=== PATIENT | male | born 1940 | race Caucasian/White ===

== ENCOUNTER → 2017-01-07 | Outpatient (CLI) | payer OTHER ==
[~2017-01-07] MED LIST: ASPEC81 PO; OMEP20TA PO; ZANTAC DAILY
[2017-01-07 09:58] LABS: CHOLESTEROL/HDL RATIO 3.6
== END | disposition home or self-care (01) ==
LOC: C.LAB1850 07:01
PROVIDERS: ATTEND Internal Medicine Cardiovascular Disease
DX: E78.5 Hyperlipidemia, unspecified (principal); R73.01 Impaired fasting glucose

== ENCOUNTER → 2017-07-21 | Outpatient (CLI) | payer OTHER ==
[2017-07-21 10:07] LABS: ALT/SGPT 12 U/L (12-78); AST/SGOT 9 U/L (15-37); BLOOD UREA NITROGEN 15 mg/dl (7-18); BUN/CREATININE RATIO 15.7 (10-20); CALCIUM 8.7 mg/dl (8.5-10.1); CARBON DIOXIDE 28 mmol/L (21-32); CHLORIDE 108 mmol/L (98-107); CHOLESTEROL 168 mg/dl (0-200); CREATININE 0.94 mg/dl (0.60-1.40); GLUCOSE 91 mg/dl (70-99); POTASSIUM 4.2 mmol/L (3.5-5.1); SODIUM 141 mmol/L (136-145); TRIGLYCERIDES 92 mg/dl (0-150); VERY LOW DENSITY LIPOPROT CALC 18 mg/dl
[2017-07-21 10:18] LABS: CHOLESTEROL/HDL RATIO 3.7; HDL CHOLESTEROL 45 mg/dl; LDL CHOLESTEROL CALCULATED 105 mg/dl
--- NOTE | 2017-07-27 12:43 | CODING QUERY MEDICAL NECESSITY ---
SUPPORTING DIAGNOSIS NEEDED A supporting diagnosis is required for the test/procedure performed on this patient in order for us to be reimbursed by the patient's insurance. Please provide a supporting diagnosis for the following test/procedure listed below next to the test name along with your signature. *If there is no additional diagnosis for this patient that would support the following test/procedure please document that below next to the test/procedure. Test(s)/Procedure(s) that require a supporting diagnosis: * PSA DIAGNOSIS: Provider Signature: Date: Thank you Reema Bhatt [employer] Once completed, please kindly fax back to [phone] For questions please call [phone]
== END | disposition home or self-care (01) ==
LOC: C.LAB1850 08:16
PROVIDERS: ATTEND Internal Medicine
DX: R73.01 Impaired fasting glucose (principal); E78.5 Hyperlipidemia, unspecified; Z00.00 Encounter for general adult medical examination without abnormal findings

== ENCOUNTER → 2018-01-12 | Outpatient (CLI) | payer OTHER ==
[2018-01-12 09:35] LABS: HEMATOCRIT 47.1 % (42-52); HEMOGLOBIN 16.7 g/dL (14.0-18.0); MEAN CELL VOLUME 94.8 fL (80-100); MEAN CORPUSCULAR HEMOGLOBIN 33.6 pg (25-34); MEAN CORPUSCULAR HGB CONC 35.5 g/dl (32-36); MEAN PLATELET VOLUME 10.1 fL (7.4-10.4); PLATELET COUNT 243 K/uL (130-400); RED CELL DISTRIBUTION WIDTH CV 13.2 % (11.5-14.5); RED CELL DISTRIBUTION WIDTH SD 45.2 fL (36.4-46.3); WHITE BLOOD COUNT 5.73 K/uL (4.8-10.8)
[2018-01-12 09:46] LABS: ALT/SGPT 20 U/L (12-78); AST/SGOT 11 U/L (15-37); BLOOD UREA NITROGEN 12 mg/dl (7-18); CARBON DIOXIDE 28 mmol/L (21-32); CHOLESTEROL 160 mg/dl (0-200); CREATININE 1.04 mg/dl (0.60-1.40); GLUCOSE 91 mg/dl (70-99); LDL CHOLESTEROL CALCULATED 92 mg/dl; POTASSIUM 4.1 mmol/L (3.5-5.1); SODIUM 140 mmol/L (136-145)
[2018-01-12 09:50] LABS: HEMOGLOBIN A1C 5.4 % (4.5-5.6)
== END | disposition home or self-care (01) ==
LOC: C.LAB1850 07:13
PROVIDERS: ATTEND Internal Medicine
DX: E78.5 Hyperlipidemia, unspecified (principal); R73.01 Impaired fasting glucose; K21.9 Gastro-esophageal reflux disease without esophagitis

== ENCOUNTER 2018-10-05 09:18 | Observation (INO) ==
--- NOTE | 2018-09-15 08:27 | Anesthesiology Consultation ---
Date of Service September 15, 2018 Assessment & Plan (1) Encounter for pre-operative examination: Chart Review Chart Review: Acceptable Risk for Surgery and Patient seen in Pre Admission Testing Teaching & Discussion Pre-Anesthesia Teaching/Discussion Notes: Instructed NPO after midnight before surgery,except medications with 15 cc of water. Medication instructions provided according to the PAT guidelines. History Surgery Operation Date: 10/04/18 11:10 Proposed Procedures p Open Inguinal Hernia Repair - Osmin Aldridge MD, FACS Height/Weight Height: 5 ft 9 in Weight: 86.1 kg Allergies Allergy/AdvReac Type Severity Reaction Status Date / Time No Known Allergies Allergy Verified 09/13/18 08:01 Medications Home Medications Medication Instructions Recorded Confirmed Last Taken aspirin [Aspir-81] 81 mg PO QAM 09/13/18 09/13/18 Unknown glucosamine sulfate [Glucosamine] 3,000 mg PO QAM 09/13/18 09/13/18 Unknown omeprazole 20 mg PO HS 09/13/18 09/15/18 Unknown psyllium husk [Metamucil] 0.4 g PO QAM 09/13/18 09/13/18 Unknown ranitidine HCl [Zantac] 150 mg PO QAM 09/13/18 09/13/18 Unknown Past Medical History Medical History GERD (gastroesophageal reflux disease) CONTROLLED Inguinal hernia Past Surgical History Surgical History History of cataract extraction with lens replacement B/L History of colonoscopy History of esophagogastroduodenoscopy (EGD) History of hemorrhoidectomy History of herniorrhaphy LEFT INGUINAL History of vasectomy Past Anesthesia History No Hx of Anesthesia Complications and No Family Hx of Anesthesia Complications History of PONV No Motion Sickness Screening History of Motion Sickness: No Social History Smoking Status: Never smoker Do You Dip or Chew Tobacco: No Hx Alcohol Use: Yes Alcohol type: other alcohol intake frequency: holidays/special occasions only Hx Substance Use: No substance use type: does not use Exercise / Class Metabolic Activity II 4-5 Yardwork/Stairs/Walk up hill Review of Systems Patient denies chest pain, shortness of breath, dyspnea on exertion, cough, wheezing, palpitations. Physical Exam Vital Signs VITALS BP 153/84 P 73 TEMP 97.7 SP02 96%RA RESP 18 Patient advised to followup with PCP regarding elevated BP. Full neck and c-spine range of motion. Full TMJ range of motion. TMD 3 finger breaths Mallampati Score 2 Dentition: upper/lower partials Lungs: clear throughout to auscultation Cardiac: regular rate and rhythm, no murmurs noted Spine: normal Carotid arteries: negative bruit Extremities: no edema Testing Electrocardiogram Date: 09/15/18 Findings: + NSR @ (70) Laboratory Results 09/15/18 08:35 09/15/18 08:35
--- NOTE | 2018-09-15 08:31 | PAT Medication Instructions ---
Medication Instructions Date of Service September 15, 2018 Home Medications aspirin [Aspir-81] 81 mg PO QAM glucosamine sulfate [Glucosamine] 3,000 mg PO QAM omeprazole 20 mg PO QAM psyllium husk [Metamucil] 0.4 g PO QAM ranitidine HCl [Zantac] 150 mg PO QAM ASK your prescriber and surgeon aspirin [Aspir-81] 81 mg PO QAM STOP taking 2 weeks before surgery (or as soon as possible if surgery is within 2 weeks) glucosamine sulfate [Glucosamine] 3,000 mg PO QAM DO NOT take the morning of surgery psyllium husk [Metamucil] 0.4 g PO QAM ranitidine HCl [Zantac] 150 mg PO QAM Take evening before surgery omeprazole 20 mg PO QHS Other Notes If you have any questions please call us at [phone] or [phone] or [phone] or [phone]
[2018-09-15 10:16] LABS: Basophils # (auto) 0.12 K/uL (0-0.2); Basophils % (auto) 1.7 %; Eosinophils # (auto) 0.23 K/uL (0-0.5); Eosinophils % (auto) 3.3 %; Hematocrit (blood only) 44.6 % (42-52); Hemoglobin 15.8 g/dL (14.0-18.0); Immature Granulocytes # (auto) 0.02 K/uL (0.00-0.02); Immature Granulocytes % (auto) 0.3 %; Lymphocytes # (auto) 1.97 K/uL (1.2-3.4); Lymphocytes % (auto) 28.4 %; Mean Corpuscular Hgb Conc 35.4 g/dL (32-36); Mean Corpuscular Volume 94.9 fL (80-100); Mean Platelet Volume 10.1 fL (7.4-10.4); Monocytes % (auto) 8.7 %; Neutrophils # (auto) 3.99 K/uL (1.4-6.5); Neutrophils % (auto) 57.6 %; Platelet Count 230 K/uL (130-400); RDW Coefficient of Variation 13.1 % (11.5-14.5); RDW Standard Deviation 45.7 fL (36.4-46.3); White Blood Count 6.93 K/uL (4.8-10.8)
[2018-09-15 10:22] LABS: Creatinine Clr Calc Pharmacy 60.4 ml/min; Est GFR (African American) 76.4; Potassium 4.9 mmol/L (3.5-5.1)
[2018-10-05] MEDS: LR 15ML/HR IV SCH ×2 (10:00→19:37)
--- NOTE | 2018-10-05 10:35 | History & Physical Bridge Note ---
Date of Service October 05, 2018 History & Physical Bridge Note I have examined the patient, reviewed the History & Physical and in the interval since the performance of the History & Physical I have noted the following changes of clinical significance: no changes noted
[2018-10-05] MEDS ORDERED: HYDROmorphone INJ 1 MG/ML SYRINGE IV PRN (11:20)
[2018-10-05] MEDS ORDERED: ePHEDrine sulfate 50 MG/ML AMP IV PRN (11:20)
[2018-10-05] MEDS ORDERED: ATROPINE SULFATE 0.1 MG/ML 10ML SYR IV PRN (11:20)
[2018-10-05] MEDS ORDERED: MIDAZOLAM HCL 1 MG/ML 2ML VIAL ONE (11:21)
[2018-10-05] MEDS ORDERED: fentaNYL citrate 100 MCG/2 ML VIAL ONE (11:21)
[2018-10-05] MEDS ORDERED: LIDOCAINE HCL 1% 20 ML VIAL ONE (11:56)
[2018-10-05] MEDS ORDERED: CEFAZOLIN 250 MG/ML 1 GM VIAL ONE (11:56)
[2018-10-05] MEDS ORDERED: BUPIVACAINE 0.5 % 5 MG/1 ML MPF 30ML VIAL ONE (11:56)
[2018-10-05] MEDS: CEFAZOLIN 2000MG 2,000 MG/15 ML SYR IV SCH ×3 (12:10→20:06)
[2018-10-05] MEDS ORDERED: GLYCOPYRROLATE 0.2 MG/ML VIAL ONE (12:45)
[2018-10-05] MEDS ORDERED: ONDANSETRON INJ 2 MG/ML 2 ML VIAL ONE (12:45)
[2018-10-05] MEDS ORDERED: ePHEDrine sulfate 50 MG/ML SYR ONE (12:45)
[2018-10-05] MEDS ORDERED: ROCURONIUM BROMIDE 10 MG/ML 5 ML VIAL ONE (12:45)
[2018-10-05] MEDS ORDERED: DEXAMETHASONE SOD INJ 4 MG/ML VIAL ONE (12:45)
[2018-10-05] MEDS ORDERED: LARYING-O-JET KIT (LTA) ONE (12:45)
[2018-10-05] MEDS ORDERED: LIDOCAINE HCL 2% 2 ML VIAL/AMP(20MG/ML) INFIL ONE (12:45)
[2018-10-05] MEDS ORDERED: NEOSTIGMINE METHYLSULFATE 5 MG/5 ML SYR ONE (12:45)
[2018-10-05] MEDS ORDERED: PROPOFOL IV EMULSION 10 MG/ML 20 ML VIAL IV ONE (12:45)
--- NOTE | 2018-10-05 13:13 | Operative Report ---
Post Operative Report Pre & Post Diagnosis Operation Date: 10/05/18 11:15 Pre-Op Diagnosis: Right Inguinal Hernia Post-Op Diagnosis: Right Inguinal Hernia same Procedure Operation Date: 10/05/18 11:15 Actual Procedures p Right Open Inguinal Hernia Repair with Mesh(Right) - Osmin Aldridge MD, FACS same Surgeon Osmin Aldridge MD, FACS [employer] Vania Ortega Estimated Blood Loss 10 Findings Consistent with Post-Op Diagnosis Specimens none I attest to the content of the Intraoperative Record and any orders documented therein. Any exceptions are noted below.
[2018-10-05] MEDS ORDERED: ACETAMINOPHEN 1,000 MG/100 ML VIAL IV ONE (13:14)
--- NOTE | 2018-10-05 14:02 | Anesthesiology Progress Note ---
Date of Service October 05, 2018 Anesthesia Post Procedure Vital Signs Vital Signs: Temp Pulse Pulse Resp BP BP Pulse Ox 10/05/18 13:51 36.6 C 63 22 136/71 97 10/05/18 13:44 64 19 116/65 96 10/05/18 13:40 63 19 144/70 H 97 10/05/18 13:36 63 14 129/87 97 10/05/18 13:35 60 12 96 10/05/18 13:30 65 8 L 139/78 96 10/05/18 13:27 64 7 L 152/81 H 92 10/05/18 13:26 36.3 C L 63 14 152/81 H 97 Notes Mental Status: alert / awake / arousable Patient Amnestic to Procedure: Yes Nausea / Vomiting: adequately controlled Pain: adequately controlled Airway Patency, RR, SpO2: stable & adequate BP & HR: stable & adequate Hydration State: stable & adequate Anesthetic Complications: no major complications apparent and Pt Satisfied with anesthetic care
[2018-10-05] MEDS ORDERED: SODIUM CHLORIDE 0.9% 1000ML 1,000 ML IV SCH (14:46)
[2018-10-05] MEDS ORDERED: ONDANSETRON INJ 2 MG/ML 2 ML VIAL IV PRN (14:46)
[2018-10-05] MEDS ORDERED: PROMETHAZINE HCL 12.5 MG in SODIUM CHLORIDE 0.9% 50 ML IV PRN (14:46)
--- NOTE | 2018-10-05 14:55 | Operative Report ---
DATE OF OPERATION: 10/05/2018 NAME OF OPERATION: Open right inguinal hernia repair. PREOPERATIVE DIAGNOSIS: Right inguinal hernia. POSTOPERATIVE DIAGNOSIS: Right inguinal hernia. STAFF SURGEON: Osmin Aldridge MD ANESTHESIA: General. TEACHERS ASSISTANT: Alia Ortega PA-C DESCRIPTION OF PROCEDURE: The patient was brought in the operating room and placed on the operating table in supine position. His lower abdomen was prepped and draped in usual fashion. Skin and subcutaneous tissue on the right side were anesthetized. Incision made parallel to the inguinal ligament, carrying dissection down, identifying the external oblique fibers. These were incised along their length to the external ring, mobilizing the cord structures. The patient had a direct hernia sac which was mobilized away from the cord structures and then reduced. It was partially closed, reapproximating the inguinal ligament to the transversalis fascia using 0 silk suture, then a mesh plug placed into the defect, secured to surrounding tissue using 2-0 Ethibond suture, then a mesh patch placed over the plug around the cord structures, secured using 2-0 Ethibond suture. This site was irrigated with antibiotic solution. External oblique fibers closed over the mesh around the cord structures using 2-0 Ethibond suture. Subcutaneous tissue reapproximated using 2-0 plain suture and then the skin reapproximated using 4-0 nylon and Steri-Strips. My document control assistant helped with prepping, draping, repair of the hernia and closure of the wound. A dressing applied and the patient transferred to recovery room in stable condition. I attest to the content of the Intraoperative Record and any orders documented therein. Any exception s are noted below.
[2018-10-05] MEDS ORDERED: OXYCODONE/ACETAMINOPHEN 5mg/325mg TAB PO PRN (20:30)
[2018-10-05] MEDS ORDERED: ACETAMINOPHEN 325 MG TAB PO PRN (20:30)
[2018-10-05] MEDS ORDERED: PANTOprazole 40 MG TAB PO SCH (21:00)
[2018-10-06] MEDS: CEFAZOLIN 2000MG 2,000 MG/15 ML SYR IV SCH (03:19)
--- NOTE | 2018-10-06 08:08 | Discharge Summary ---
DATE OF DISCHARGE: 10/06/18 PRINCIPAL DIAGNOSIS: Right inguinal hernia. PROCEDURES: The patient underwent open right inguinal hernia repair. HISTORY OF PRESENT ILLNESS: The patient is an 78-year-old male with enlarging right inguinal hernia for definitive surgery. HOSPITAL COURSE: The patient was brought into the hospital on 10/05/2018 where he underwent open right inguinal hernia repair. He has done well overnight and is felt stable for discharge home today to be followed in the surgical clinic within 1-2 weeks.
[2018-10-06] MEDS ORDERED: DOCUSATE SODIUM/SENNA 50/8.6MG TAB PO SCH (09:00)
== END 2018-10-06 09:30 | disposition home or self-care (01) ==
LOC: 3W 09:18 → ASU 09:18

== ENCOUNTER 2019-04-29 15:28 | Inpatient (IN) ==
[2019-04-29] MEDS ORDERED: SODIUM CHLORIDE 0.9% 1000ML 1,000 ML IV ONE (15:49)
--- NOTE | 2019-04-29 15:56 | Emergency Department Note ---
History of Present Illness General Chief complaint: Abdominal Pain Stated complaint: STOMACH PAINS Time Seen by Provider: 04/29/19 15:34 History of Present Illness Maximum Pain Intensity: 5 79-year-old male who presents the emergency department with complaint of persistent central and right upper quadrant abdominal pain. The patient reports that he was here on Thursday with similar symptoms, and diagnosed with gallstones hiatal hernia. The patient reports that he has had difficulty scheduling an appointment with a general surgeon, but was able to schedule an appointment for next Thursday with Dr. Madrigal. The patient reports that he has had poor appetite all week. He has been eating cereal and poached eggs. The patient reports that the pain is constant in nature without any radiation to the lower abdomen, back, chest or shoulder. He denies any chest pain or shortness of br eath, and denies any prior cardiac history. The patient has not had any recent diarrhea, constipation, melena or mucus stools. The patient reports that he did have a fever this morning between 101 101 F. He currently rates his discomfort a 5 out of 10. Home Medications Home Medications Medication Instructions Recorded Confirmed Type aspirin [Aspir-81] 81 mg PO QAM 09/13/18 04/29/19 History glucosamine sulfate [Glucosamine] 1,000 mg PO QAM 09/13/18 04/29/19 History omeprazole 20 mg PO HS 09/13/18 04/29/19 History calcium polycarbophil [Fiber-Tabs] 1,250 mg PO QAM 04/25/19 04/29/19 History multivitamin 1 tab PO QAM 04/29/19 04/29/19 History naproxen sodium [Aleve] 220 mg PO Q12H PRN 04/29/19 04/29/19 History Allergies Allergy/AdvReac Type Severity Reaction Status Date / Time No Known Allergies Allergy Verified 04/29/19 16:15 Past Med/Surg History Medical History Systolic ejection murmur Encounter for pre-operative examination Left foot infection (Acute) Gallstones GERD (gastroesophageal reflux disease) CONTROLLED Inguinal hernia Surgical History History of cataract extraction with lens replacement B/L History of colonoscopy History of esophagogastroduodenoscopy (EGD) History of hemorrhoidectomy History of herniorrhaphy LEFT INGUINAL History of vasectomy Family History Other No significant family history Social History Preferred Language: Moldovan Communication Ability: Effective Instructional Technology Facilitator Required: No Beliefs That Will Affect Care: None Current Living Situation: Spouse Other Information That Helps Us Care for You: No Feels Safe at Home: Yes Safety Concerns: Feels Safe At This Time Smoking Status: Never smoker Do You Dip or Chew Tobacco: No ; Second Hand Exposure: No ; Tobacco Cessation Education Requested by Patient: No Hx Alcohol Use: No Hx Substance Use: No Review of Systems 10 system review was performed and was negative except for pertinent positives and negatives as indicated in history of present illness Physical Exam Vital Signs Vital Signs - 24 hr 04/29/19 15:31 04/29/19 17:38 04/29/19 17:42 Temperature 37.4 C Temperature Source Oral Sepsis Recent Fever Within 48 Hours Yes Sepsis New/Unexplained Change in Mental Status No Sepsis Action Taken by Nursing No Action Required Pulse Rate 111 H 76 76 Respiratory Rate 18 25 H 26 H Blood Pressure 153/92 H 160/95 H Blood Pressure Mean 112 116 Pulse Oximetry 94 Oxygen Delivery Method Room Air 04/29/19 18:00 04/29/19 18:02 Temperature Temperature Source Sepsis Recent Fever Within 48 Hours Sepsis New/Unexplained Change in Mental Status Sepsis Action Taken by Nursing Pulse Rate 79 Respiratory Rate 27 H Blood Pressure Blood Pressure Mean Pulse Oximetry 97 Oxygen Delivery Method Room Air CONSTITUTIONAL: Healthy and well nourished. Alert and oriented X 3. Patient appears in mild discomfort. HEENT: Normocephalic, atraumatic. Pupils equal, round and reactive. No scleral icterus or conjunctival injection/pallor. NECK: Full active range of motion without discomfort. No JVD or carotid bruits appreciated. LYMPHATICS: No cervical chain adenopathy. RESPIRATORY: Clear to auscultation bilaterally with no wheezing, crackles, rhonchi or stridor. CARDIOVASCULAR: Regular rate and rhythm with no murmurs, rubs or gallops. GASTROINTESTINAL: Bowel sounds present in all quadrants. She has generalized central and right upper quadrant tenderness to palpation. Negative Hicks sign. Negative CVA tenderness. No obvious hepatosplenomegaly. No rigidity, guarding or rebound. Negative McBurney's point tenderness. No focal left lower quadrant tenderness to palpation. No fluid wave or ballottement. MUSCULOSKELETAL: Full range of motion of all joints without discomfort. INTEGUMENTARY: No rash or other significant dermatologic conditions noted. HEMATOLOGIC: No ecchymosis or petechiae. PSYCHIATRIC: Positive affect. NEUROLOGIC: No focal neurologic deficits noted. Course Patient history and physical exam were performed. Nurse's notes were reviewed. Vital signs were reviewed, showing an oral temperature of 37.4 C with a pulse rate of 111. Blood pressure is also elevated at 153/92. O2 saturation is 94% on room air. I also reviewed documentations from the patient's last ED visit. He did have CT of the abdomen and pelvis with IV contrast performed that showed no acute intra-abdominal findings. Diverticulosis was noted without evidence for diverticulitis. A hiatal hernia was also noted. Gallstones were noted on ultrasound. Chest x-ray was normal. The patient's lab work on Thursday was also normal. For today's visit, IV access was established, and labs were drawn. The patient was hydrated with a liter normal saline. He refused any analgesics or antiemetics. Review of labs shows a moderate leukocytosis with left shift and bandemia. Patient is also mildly hyponatremic at 135. Total bilirubin is also elevated at 1.7 with normal LFTs and lipase. CRP is significantly elevated and ECG and troponin were normal. Urinalysis was not consistent with infection. An abdomen obstruction series with a PA chest view did not show any free air, obstructive pattern or pulmonary consolidations. Right upper quadrant ultrasound shows gallbladder wall thickening, gallstones and sludge without evidence for pericholecystic fluid. The case was further discussed with Dr. Edwards, ED attending physician, who also evaluated the patient and agrees with surgical consultation. The case was then further discussed with Dr. Madrigal, general surgeon on-call who came to the emergency department, evaluated the patient and recommended hospitalist admission for presurgical clearance. Pending additional lab work, laparoscopic cholecystectomy and possible cholangiogram was planned for tomorrow. I did order Zosyn 4.5 g IV infusion. The patient continued to deny any significant pain or nausea prior to transfer of care to Dr. Brower, [facility] physician's Group hospitalist. Administered Medications Diphenhydramine HCl (Benadryl Capsule) 25 mg PO HSZ PRN PRN Reason: Anxiety/Insomnia Stop: 05/29/19 21:07 Last Admin: 04/29/19 22:11 Dose: 25 mg Documented by: [id number] Ondansetron HCl (Zofran) 4 mg IV Q6H PRN PRN Reason: Nausea Stop: 05/29/19 21:07 Last Admin: 04/29/19 22:04 Dose: 4 mg Documented by: [id number] Discontinued Medications Sodium Chloride (Nss 1000ml) 1,000 mls @ 999 mls/hr IV .Q1H1M ONE Stop: 04/29/19 16:49 Last Infusion: 04/29/19 17:21 Dose: 0 mls/hr Documented by: [id number] Admin: 04/29/19 16:02 Dose: 999 mls/hr Documented by: [id number] Piperacillin Sod/Tazobactam Sod (Zosyn) 4.5 gm in 120 mls @ 240 mls/hr IV NOW ONE Stop: 04/29/19 18:54 Last Infusion: 04/29/19 19:40 Dose: 0 mls/hr Documented by: [id number] Admin: 04/29/19 19:06 Dose: 240 mls/hr Documented by: [id number] Acetaminophen (Ofirmev) 1,000 mg in 100 mls @ 400 mls/hr IV NOW STA Stop: 04/29/19 22:11 Last Infusion: 04/29/19 22:43 Dose: 0 mls/hr Documented by: [id number] Admin: 04/29/19 22:05 Dose: 400 mls/hr Documented by: [id number] Medical Decision Making Medical Records Attestation: I reviewed the patient's medical records. Home Medications Current Medication List: was personally reviewed by me Laboratory Data Attestation: I reviewed the patient's lab results. Result diagrams: 04/29/19 15:59 04/29/19 15:59 Lab Results 04/29/19 04/29/19 04/29/19 Range/Units 15:59 15:59 15:59 WBC 13.81 H (4.8-10.8) K/uL RBC 4.38 L (4.7-6.1) M/uL Hgb 14.9 (14.0-18.0) g/dL Hct 40.6 L (42-52) % MCV 92.7 (80-100) fL MCH 34.0 (25-34) pg MCHC 36.7 H (32-36) g/dL RDW Std Deviation 42.2 (36.4-46.3) fL RDW Coeff of Salazar 12.4 (11.5-14.5) % Plt Count 221 (130-400) K/uL MPV 9.9 (7.4-10.4) fL Immature Gran % (Auto) 0.3 % Neut % (Auto) 78.9 % Lymph % (Auto) 9.8 % [place] % (Auto) 10.3 % Eos % (Auto) 0.5 % Baso % (Auto) 0.2 % Immature Gran # (Auto) 0.04 H (0.00-0.02) K/uL Neut # (Auto) 10.89 H (1.4-6.5) K/uL Lymph # (Auto) 1.36 (1.2-3.4) K/uL [place] # (Auto) 1.42 H (0.11-0.59) K/uL Eos # (Auto) 0.07 (0-0.5) K/uL Baso # (Auto) 0.03 (0-0.2) K/uL PT 12.9 H (9.0-12.0) Seconds INR 1.3 H (0.9-1.1) APTT 32.7 H (21.0-31.0) Seconds PTT Ratio 1.2 Sodium 135 L (136-145) mmol/L Potassium 3.5 (3.5-5.1) mmol/L Chloride 104 (98-107) mmol/L Carbon Dioxide 24 (21-32) mmol/L Anion Gap 7.0 (3-11) BUN 14 (7-18) mg/dl Creatinine 0.84 (0.6-1.4) mg/dl Est Cr Clr Drug Dosing 69.0 ml/min Est GFR ( Amer) 95.2 Est GFR (Non-Af Amer) 82.1 BUN/Creatinine Ratio 16.7 (10-20) Glucose 101 H (70-99) mg/dl Calcium 8.3 L (8.5-10.1) mg/dl Total Bilirubin 1.7 H (0.2-1) mg/dl AST 23 (15-37) U/L ALT 34 (12-78) U/L Alkaline Phosphatase 81 (45-117) U/L Troponin I < 0.015 (0-0.045) ng/ml C-Reactive Protein 11.60 H (0-0.29) mg/dl Total Protein 7.2 (6.4-8.2) gm/dl Albumin 3.1 L (3.4-5.0) gm/dl Globulin 4.1 H (2.5-4.0) gm/dl Albumin/Globulin Ratio 0.8 L (0.9-2) Lipase 63 L (73-393) U/L Urine Color Urine Appearance (Clear) Urine pH (4.5-7.5) Ur Specific [place] (1.000-1.030) Urine Protein (Negative) Urine Glucose (UA) (Negative) Urine Ketones (Negative) Urine Blood (Negative) Urine Nitrite (Negative) Urine Bilirubin (Negative) Urine Urobilinogen (Negative) Ur Leukocyte Esterase (Negative) 04/29/19 Range/Units 17:30 WBC (4.8-10.8) K/uL RBC (4.7-6.1) M/uL Hgb (14.0-18.0) g/dL Hct (42-52) % MCV (80-100) fL MCH (25-34) pg MCHC (32-36) g/dL RDW Std Deviation (36.4-46.3) fL RDW Coeff of Salazar (11.5-14.5) % Plt Count (130-400) K/uL MPV (7.4-10.4) fL Immature Gran % (Auto) % Neut % (Auto) % Lymph % (Auto) % [place] % (Auto) % Eos % (Auto) % Baso % (Auto) % Immature Gran # (Auto) (0.00-0.02) K/uL Neut # (Auto) (1.4-6.5) K/uL Lymph # (Auto) (1.2-3.4) K/uL [place] # (Auto) (0.11-0.59) K/uL Eos # (Auto) (0-0.5) K/uL Baso # (Auto) (0-0.2) K/uL PT (9.0-12.0) Seconds INR (0.9-1.1) APTT (21.0-31.0) Seconds PTT Ratio Sodium (136-145) mmol/L Potassium (3.5-5.1) mmol/L Chloride (98-107) mmol/L Carbon Dioxide (21-32) mmol/L Anion Gap (3-11) BUN (7-18) mg/dl Creatinine (0.6-1.4) mg/dl Est Cr Clr Drug Dosing ml/min Est GFR ( Amer) Est GFR (Non-Af Amer) BUN/Creatinine Ratio (10-20) Glucose (70-99) mg/dl Calcium (8.5-10.1) mg/dl Total Bilirubin (0.2-1) mg/dl AST (15-37) U/L ALT (12-78) U/L Alkaline Phosphatase (45-117) U/L Troponin I (0-0.045) ng/ml C-Reactive Protein (0-0.29) mg/dl Total Protein (6.4-8.2) gm/dl Albumin (3.4-5.0) gm/dl Globulin (2.5-4.0) gm/dl Albumin/Globulin Ratio (0.9-2) Lipase (73-393) U/L Urine Color Dark Yellow Urine Appearance Clear (Clear) Urine pH 7.5 (4.5-7.5) Ur Specific [place] 1.014 (1.000-1.030) Urine Protein Negative (Negative) Urine Glucose (UA) Negative (Negative) Urine Ketones 1+ H (Negative) Urine Blood Negative (Negative) Urine Nitrite Negative (Negative) Urine Bilirubin Negative (Negative) Urine Urobilinogen Positive H (Negative) Ur Leukocyte Esterase Negative (Negative) Imaging Data Attestation: I personally reviewed and interpreted this imaging study as follows: My Impression: My interpretation of an abdomen obstruction series with a PA chest view does not show any obstructive pattern, free air or lung consolidations. Gallbladder ultrasound shows gallbladder sludge, stones and gallbladder wall thickening without pericholecystic fluid. Radiologist reports were reviewed. Radiologist's Impression: XR abdomen 2V w PA chest HISTORY: 79 years-old Male Abd pain, hiata; hernia acute generalized abdominal pain with hiatal hernia. COMPARISON: Chest radiograph and CT abdomen and pelvis 04/25/2019 TECHNIQUE: PA view the chest with erect and supine views of the abdomen FINDINGS: Cardiac silhouette is enlarged. Mild prominence of the left hilum is unchanged. No pneumothorax, pleural effusion or overt pulmonary edema. Areas of chronic interstitial coarsening noted about the lung bases. Degenerative changes of the shoulders and spine. Moderate sized hiatal hernia. Nonobstructive bowel gas pattern. No pneumatosis or pneumoperitoneum. Pelvic basin calcifications are suggestive of probable phleboliths. No definite urolith. Degenerative changes of the spine, pelvis and hips. IMPRESSION: 1. No acute process of the chest. 2. Moderate hiatal hernia. 3. Nonobstructive bowel gas pattern. US gallbladder HISTORY: 79 years-old Male Abd pain - gallstones acute right upper quadrant abdominal pain COMPARISON: Abdominal ultrasound and CT abdomen and pelvis 04/25/2019 TECHNIQUE: Multiple real time sonographic images of the abdominal right upper quadrant were obtained assessing grayscale appearance and color flow FINDINGS: Pancreas is mostly obscured by bowel gas. Heterogeneous mildly echogenic appearance of the liver redemonstrated. No focal hepatic mass lesion, ascites or evidence of cirrhosis. Cholelithiasis and gallbladder sludge is noted with mild gallbladder distention. Mildly edematous and thickened gallbladder wall measures up to 6 mm. No definite pericholecystic fluid. Sonographic Hicks sign reported as negative. Common bile duct is normal, 5 mm. Imaged right kidney is unremarkable without hydronephrosis. IMPRESSION: 1. Interval development of mild gallbladder distention and gallbladder wall thickening with associated cholelithiasis and gallbladder sludge. There is however no pericholecystic fluid and the sonographic Hicks sign was reported as negative. Findings are equivocal for acute cholecystitis. Correlate with laboratory analysis and clinical symptoms. Follow-up nuclear medicine hepatobiliary scan may also be considered. 2. No biliary ductal dilation. ECG Data Attestation: I personally reviewed and interpreted this ECG as follows: Indication: abdominal pain Rhythm: normal sinus Findings: + T-wave inversion (Lead III) Comparison ECG Date: from (04/25/2019) Change: the following changes noted (New T wave inversion in lead III) Blood Pressure Blood Pressure Findings: Elevated blood pressure MDM Narrative Patient presents to the emergency department with progressively worsening symptoms concerning for acute cholecystitis. Patient is near febrile and has a moderate leukocytosis with left shift and bandemia. Ultrasound findings does show evidence for gallbladder sludge, stones and gallbladder wall thickening, however no pericholecystic fluid is noted. Additional laboratory studies are not suggestive of acute pancreatitis. LFTs are normal. The patient does not have any additional abdominal exam findings to suggest diverticulitis, appendicitis or pyelonephritis. I also do not suspect acute cardiopulmonary referred pain. ECG and troponin are normal. Impression & Plan Acute cholecystitis Discharge Plan Visit Data *Final* Discharge Date/Time: 04/29/19 20:57 Chief Complaint: Abdominal Pain Stated Complaint: STOMACH PAINS ED Provider: Jose Edwards ED Midlevel Provider: Fidel Johnson Discharge Problem: Acute cholecystitis Patient Disposition: Admitted As Inpatient Discharge Instructions Interventions: ED Discharge Assessment Last Done: 04/29/19 20:57
[2019-04-29 16:14] LABS: Basophils # (auto) 0.03 K/uL (0-0.2); Basophils % (auto) 0.2 %; Eosinophils # (auto) 0.07 K/uL (0-0.5); Eosinophils % (auto) 0.5 %; Hematocrit (blood only) 40.6 % (42-52); Hemoglobin 14.9 g/dL (14.0-18.0); Immature Granulocytes # (auto) 0.04 K/uL (0.00-0.02); Immature Granulocytes % (auto) 0.3 %; Lymphocytes # (auto) 1.36 K/uL (1.2-3.4); Lymphocytes % (auto) 9.8 %; Mean Corpuscular Hgb Conc 36.7 g/dL (32-36); Mean Corpuscular Volume 92.7 fL (80-100); Mean Platelet Volume 9.9 fL (7.4-10.4); Monocytes # (auto) 1.42 K/uL (0.11-0.59); Monocytes % (auto) 10.3 %; Neutrophils # (auto) 10.89 K/uL (1.4-6.5); Neutrophils % (auto) 78.9 %; Platelet Count 221 K/uL (130-400); RDW Coefficient of Variation 12.4 % (11.5-14.5); RDW Standard Deviation 42.2 fL (36.4-46.3); Red Blood Count 4.38 M/uL (4.7-6.1); White Blood Count 13.81 K/uL (4.8-10.8)
[2019-04-29 16:24] LABS: INR 1.3 (0.9-1.1); Partial Thromboplastin Ratio 1.2; Partial Thromboplastin Time 32.7 Seconds (21.0-31.0); Prothrombin Time 12.9 Seconds (9.0-12.0)
[2019-04-29 16:50] LABS: Alanine Aminotransferase 34 U/L (12-78); Albumin Level 3.1 gm/dl (3.4-5.0); Aspartate Aminotransferase 23 U/L (15-37); BUN Creatinine Ratio 16.7 (10-20); Blood Urea Nitrogen 14 mg/dl (7-18); Calcium 8.3 mg/dl (8.5-10.1); Carbon Dioxide 24 mmol/L (21-32); Chloride 104 mmol/L (98-107); Est GFR (African American) 95.2; Est GFR (Non-African American) 82.1; Glucose 101 mg/dl (70-99); Potassium 3.5 mmol/L (3.5-5.1); Sodium 135 mmol/L (136-145)
[2019-04-29 16:55] LABS: Albumin Globulin Ratio 0.8 (0.9-2); Alkaline Phosphatase 81 U/L (45-117); Bilirubin,Total 1.7 mg/dl (0.2-1); Globulin 4.1 gm/dl (2.5-4.0); Total Protein 7.2 gm/dl (6.4-8.2); Troponin I < 0.015 ng/ml (0-0.045)
--- NOTE | 2019-04-29 17:14 | XRay Report ---
XR abdomen 2V w PA chest HISTORY: 79 years-old Male Abd pain, hiata; hernia acute generalized abdominal pain with hiatal rea ia. COMPARISON: Chest radiograph and CT abdomen and pelvis 04/25/2019 TECHNIQUE: PA view the chest with erect and supine views of the abdomen FINDINGS: Cardiac silhouette is enlarged. Mild prominence of the left hilum is unchanged. No pneumothorax, pleu ral effusion or overt pulmonary edema. Areas of chronic interstitial coarsening noted about the lung bases. Degenerative changes of the shoulders and spine. Moderate sized hiatal hernia. Nonobstructive bowel gas pattern. No pneumatosis or pneumoperitoneum. Pelvic basin calcifications ar e suggestive of probable phleboliths. No definite urolith. Degenerative changes of the spine, pelvis and hips. IMPRESSION: 1. No acute process of the chest. 2. Moderate hiatal hernia. 3. Nonobstructive bowel gas pattern. The above report was generated using voice recognition software. It may contain grammatical, syntax o r spelling errors. Electronically signed by: Mark Villafuerte M.D. 04/29/2019 5:13 PM
--- NOTE | 2019-04-29 17:39 | Ultrasound Report ---
US gallbladder HISTORY: 79 years-old Male Abd pain - gallstones acute right upper quadrant abdominal pain COMPARISON: Abdominal ultrasound and CT abdomen and pelvis 04/25/2019 TECHNIQUE: Multiple real time sonographic images of the abdominal right upper quadrant were obtained assessing grayscale appearance and color flow FINDINGS: Pancreas is mostly obscured by bowel gas. Heterogeneous mildly echogenic appearance of the liver rede monstrated. No focal hepatic mass lesion, ascites or evidence of cirrhosis. Cholelithiasis and gallbl adder sludge is noted with mild gallbladder distention. Mildly edematous and thickened gallbladder wa ll measures up to 6 mm. No definite pericholecystic fluid. Sonographic Hicks sign reported as negati ve. Common bile duct is normal, 5 mm. Imaged right kidney is unremarkable without hydronephrosis. IMPRESSION: 1. Interval development of mild gallbladder distention and gallbladder wall thickening with associate d cholelithiasis and gallbladder sludge. There is however no pericholecystic fluid and the sonographi c Hicks sign was reported as negative. Findings are equivocal for acute cholecystitis. Correlate wit h laboratory analysis and clinical symptoms. Follow-up nuclear medicine hepatobiliary scan may also b e considered. 2. No biliary ductal dilation. The above report was generated using voice recognition software. It may contain grammatical, syntax o r spelling errors. Electronically signed by: Mark Villafuerte M.D. 04/29/2019 5:38 PM
--- NOTE | 2019-04-29 18:06 | Emergency Department Note ---
ED Visit Note Patient was seen by our PA/SNAP ATTACHER. I was involved in the patient's care and did evaluate the patient myself. I was involved in the care throughout the ER stay. The patient presents with a history of gallstones. Work-up here suggests an early acute cholecystitis. He does have an elevated white blood cell count. Hospitalization is warranted. Surgery and medicine have been consulted. .
[2019-04-29 18:14] LABS: Appearance Urine Clear (Clear); Bilirubin Urine Negative (Negative); Blood Urine Negative (Negative); Color Urine Dark Yellow; Glucose Urine UA Negative (Negative); Ketones Urine 1+ (Negative); Leukocyte Esterase Urine Negative (Negative); Nitrite Urine Negative (Negative); Protein Urine Negative (Negative); Specific Gravity Urine 1.014 (1.000-1.030); Urobilinogen Urine Positive (Negative); pH Urine 7.5 (4.5-7.5)
[2019-04-29] MEDS ORDERED: PIPERACILLIN/TAZOBACTAM 4.5 GM/120 ML BAG IV ONE (18:25)
[2019-04-29] MEDS ORDERED: PIPERACILL/TAZOBAC CONSULT ACTIVE PRN (18:25)
--- NOTE | 2019-04-29 18:47 | Surgery Consultation ---
Date of Consultation April 29, 2019 Assessment & Plan (1) Acute calculous cholecystitis: 79-year-old male with acute calculus cholecystitis. Admission per medicine team Plan for laparoscopic cholecystectomy, possible cholangiogram in the morning Risk the procedure were discussed to include but are not limited to bleeding, infection, retained stone, bile leak, damage to surrounding structures, need for future or more extensive surgery, conversion open, and the risks of anesthesia. He may have clear liquids tonight, n.p.o. after midnight IV fluids IV antibiotics Repeat labs with LFTs in the morning The diagnosis, details of the procedure and recovery, and plan of care discussed with the patient and his , all questions were answered, the patient expressed understanding and agreed with the plan of care as stated. Present on Admission?: Yes History of Present Illness History of Present Illness 79-year-old male presented to the emergency department with abdominal pain. He started having abdominal pain after eating sausage sandwich on Thursday night. He presented to the emergency department and had an ultrasound that showed gallstones with no evidence of cholecystitis and normal labs. He had a CT scan was also unremarkable. He was discharged home with plans for follow-up with general surgery. Since then he is continued to have some abdominal pain along with some low-grade fevers and night sweats. He also has nausea and has not wanted to eat anything. Today the pain got worse and he presented to the emergency department. Repeat ultrasound shows thickened gallbladder wall with gallstones. Common bile duct was normal. White count is elevated, total bilirubin is elevated but remainder of LFTs are normal. Allergies Allergy/AdvReac Type Severity Reaction Status Date / Time No Known Allergies Allergy Verified 04/29/19 16:15 Home Medications Home Medications Medication Instructions Recorded Confirmed Type aspirin [Aspir-81] 81 mg PO QAM 09/13/18 04/29/19 History glucosamine sulfate [Glucosamine] 1,000 mg PO QAM 09/13/18 04/29/19 History omeprazole 20 mg PO HS 09/13/18 04/29/19 History calcium polycarbophil [Fiber-Tabs] 1,250 mg PO QAM 04/25/19 04/29/19 History multivitamin 1 tab PO QAM 04/29/19 04/29/19 History naproxen sodium [Aleve] 220 mg PO Q12H PRN 04/29/19 04/29/19 History Patient History Medical History Encounter for pre-operative examination Left foot infection (Acute) Gallstones GERD (gastroesophageal reflux disease) CONTROLLED Inguinal hernia Surgical History History of cataract extraction with lens replacement B/L History of colonoscopy History of esophagogastroduodenoscopy (EGD) History of hemorrhoidectomy History of herniorrhaphy LEFT INGUINAL History of vasectomy Social History Preferred Language: Algerian Communication Ability: Effective Freight Flagman Required: No Beliefs That Will Affect Care: None Current Living Situation: Spouse Feels Safe at Home: Yes Smoking Status: Never smoker Second Hand Exposure: No ; Hx Alcohol Use: Yes Alcohol type: other Hx Substance Use: No Review of Systems Review of Systems: All systems reviewed & are unremarkable except as noted in HPI & below Physical Exam Constitutional: WD/WN, vitals as above Eyes: PERRL, conjunctivae normal, anicteric sclerae ENMT: external ear and nose normal, oropharynx normal Neck: trachea midline, no thyromegaly Respiratory: normal respiratory effort, lungs clear to auscultation Cardiovascular: RRR, no murmur, no edema Gastrointestinal (Abdomen): Percussion/Palpation: + abdomen tender (Right upper quadrant tenderness, negative Hicks sign) and abdomen soft; no guarding, no hepatosplenomegaly and no hernia Musculoskeletal: no cyanosis or clubbing, extremities motor strength 5/5 Skin: no rashes, warm and dry Neurologic: PERRL, EOMI, accommodation nl, no face palsy, no dysarthria Psychiatric: A+Ox3, euthymic affect Lymphatic: no cervical or axillary lymphadenopathy Results & Data Vital Signs (Past 12 Hours) Vital Signs Temp Pulse Resp BP Pulse Ox 04/29/19 18:02 97 04/29/19 18:00 79 27 H 04/29/19 17:42 76 26 H 04/29/19 17:38 76 25 H 160/95 H 04/29/19 15:31 37.4 C 111 H 18 153/92 H 94 Laboratory Results Laboratory Results - last 24 hr 04/29/19 04/29/19 04/29/19 15:59 15:59 15:59 WBC 13.81 H RBC 4.38 L Hgb 14.9 Hct 40.6 L MCV 92.7 MCH 34.0 MCHC 36.7 H RDW Std Deviation 42.2 RDW Coeff of Salazar 12.4 Plt Count 221 MPV 9.9 Immature Gran % (Auto) 0.3 Neut % (Auto) 78.9 Lymph % (Auto) 9.8 [place] % (Auto) 10.3 Eos % (Auto) 0.5 Baso % (Auto) 0.2 Immature Gran # (Auto) 0.04 H Neut # (Auto) 10.89 H Lymph # (Auto) 1.36 [place] # (Auto) 1.42 H Eos # (Auto) 0.07 Baso # (Auto) 0.03 PT 12.9 H INR 1.3 H APTT 32.7 H PTT Ratio 1.2 Sodium 135 L Potassium 3.5 Chloride 104 Carbon Dioxide 24 Anion Gap 7.0 BUN 14 Creatinine 0.84 Est Cr Clr Drug Dosing 69.0 Est GFR ( Amer) 95.2 Est GFR (Non-Af Amer) 82.1 BUN/Creatinine Ratio 16.7 Glucose 101 H Calcium 8.3 L Total Bilirubin 1.7 H AST 23 ALT 34 Alkaline Phosphatase 81 Troponin I < 0.015 C-Reactive Protein 11.60 H Total Protein 7.2 Albumin 3.1 L Globulin 4.1 H Albumin/Globulin Ratio 0.8 L Lipase 63 L Urine Color Urine Appearance Urine pH Ur Specific [place] Urine Protein Urine Glucose (UA) Urine Ketones Urine Blood Urine Nitrite Urine Bilirubin Urine Urobilinogen Ur Leukocyte Esterase 04/29/19 17:30 WBC RBC Hgb Hct MCV MCH MCHC RDW Std Deviation RDW Coeff of Salazar Plt Count MPV Immature Gran % (Auto) Neut % (Auto) Lymph % (Auto) [place] % (Auto) Eos % (Auto) Baso % (Auto) Immature Gran # (Auto) Neut # (Auto) Lymph # (Auto) [place] # (Auto) Eos # (Auto) Baso # (Auto) PT INR APTT PTT Ratio Sodium Potassium Chloride Carbon Dioxide Anion Gap BUN Creatinine Est Cr Clr Drug Dosing Est GFR ( Amer) Est GFR (Non-Af Amer) BUN/Creatinine Ratio Glucose Calcium Total Bilirubin AST ALT Alkaline Phosphatase Troponin I C-Reactive Protein Total Protein Albumin Globulin Albumin/Globulin Ratio Lipase Urine Color Dark Yellow Urine Appearance Clear Urine pH 7.5 Ur Specific [place] 1.014 Urine Protein Negative Urine Glucose (UA) Negative Urine Ketones 1+ H Urine Blood Negative Urine Nitrite Negative Urine Bilirubin Negative Urine Urobilinogen Positive H Ur Leukocyte Esterase Negative Diagnostic Findings US gallbladder HISTORY: 79 years-old Male Abd pain - gallstones acute right upper quadrant a bdominal pain COMPARISON: Abdominal ultrasound and CT abdomen and pelvis 04/25/2019 TECHNIQUE: Multiple real time sonographic images of the abdominal right upper quadrant were obtained assessing grayscale appearance and color flow FINDINGS: Pancreas is mostly obscured by bowel gas. Heterogeneous mildly echogenic appearance of the liver redemonstrated. No focal hepatic mass lesion, ascites or evidence of cirrhosis. Cholelithiasis and gallbladder sludge is noted with mild gallbladder distention. Mildly edematous and thickened gallbladder wall measures up to 6 mm. No definite pericholecystic fluid. Sonographic Hicks sign reported as negative. Common bile duct is normal, 5 mm. Imaged right kidney is unremarkable without hydronephrosis. IMPRESSION: 1. Interval development of mild gallbladder distention and gallbladder wall thickening with associated cholelithiasis and gallbladder sludge. There is however no pericholecystic fluid and the sonographic Hicks sign was reported as negative. Findings are equivocal for acute cholecystitis. Correlate with laboratory analysis and clinical symptoms. Follow-up nuclear medicine hepatobiliary scan may also be considered. 2. No biliary ductal dilation. The above report was generated using voice recognition software. It may contain grammatical, syntax or spelling errors. PG Care Time/CCT Total # of Minutes Spent Total Time Spent with Patient: Total time spent is greater than 50% in coordination of care (as documented) at patient's floor/unit and/or counseling patient:
--- NOTE | 2019-04-29 18:48 | Anesthesiology Consultation ---
Date of Service April 29, 2019 Assessment & Plan (1) Encounter for pre-operative examination: Chart Review Chart Review: Acceptable Risk for Surgery and Patient NOT seen in Pre Admission Testing Consults Requested none ASA ASA2 Proposed Anesthesia Anesthesia Type: General Risk / Benefits Reviewed With: PT / POA / Parent / Guardian, Accepts Plan and I nformed Consent Obtained History Surgery Operation Date: 04/30/19 07:45 Proposed Procedures p Laparoscopic Cholecystectomy - Ag aMdrigal DO, FACS Height/Weight Height: 5 ft 9 in Weight: 84 kg Allergies Allergy/AdvReac Type Severity Reaction Status Date / Time No Known Allergies Allergy Verified 04/29/19 16:15 Medications Home Medications Medication Instructions Recorded Confirmed Last Taken aspirin [Aspir-81] 81 mg PO QAM 09/13/18 04/29/19 04/29/19 glucosamine sulfate [Glucosamine] 1,000 mg PO QAM 09/13/18 04/29/19 04/29/19 omeprazole 20 mg PO HS 09/13/18 04/29/19 04/28/19 calcium polycarbophil [Fiber-Tabs] 1,250 mg PO QAM 04/25/19 04/29/19 04/29/19 multivitamin 1 tab PO QAM 04/29/19 04/29/19 04/29/19 naproxen sodium [Aleve] 220 mg PO Q12H PRN 04/29/19 04/29/19 04/29/19 220mg Active Medications Generic Name Dose Route Start Last Admin Trade Name Freq PRN Reason Stop Dose Admin Diphenhydramine HCl 25 mg 04/29/19 21:08 04/29/19 22:11 Benadryl Capsule PO 05/29/19 21:07 25 mg HSZ PRN Administration Anxiety/Insomnia Acetaminophen 1,000 mg in 100 mls @ 400 mls/hr 04/30/19 01:00 04/30/19 00:26 Ofirmev IV 05/30/19 00:59 Infused Q8H PRN Infusion Pain or Fever Piperacillin Sod/Tazobactam 115 mls @ 28.75 mls/hr 04/30/19 02:00 04/30/19 03:00 Sod 3.375 gm/ Dextrose IV 05/10/19 01:59 28.8 mls/hr Q8H ROCIO Administration Protocol Lactated Ringer's 1,000 mls @ 100 mls/hr 04/29/19 22:31 04/29/19 22:00 Lr IV 04/30/19 22:30 100 mls/hr .Q10H ROCIO Administration Ondansetron HCl 4 mg 04/29/19 21:08 04/30/19 04:20 Zofran IV 05/29/19 21:07 4 mg Q6H PRN Administration Nausea NPO Date Last Intake of Fluids: 04/29/19 Time Last Intake of Fluids: 20:00 Date Last Intake of Solids: 04/29/19 Time Last Intake of Solids: 12:00 Past Medical History Medical History Systolic ejection murmur Encounter for pre-operative examination Left foot infection (Acute) Gallstones GERD (gastroesophageal reflux disease) CONTROLLED Inguinal hernia Exercise / Class Metabolic Activity II 4-5 Yardwork/Stairs/Walk up hill Past Family History Family History Other No significant family history Past Surgical History Surgical History History of cataract extraction with lens replacement B/L History of colonoscopy History of esophagogastroduodenoscopy (EGD) History of hemorrhoidectomy History of herniorrhaphy LEFT INGUINAL History of vasectomy Past Anesthesia History No Hx of Anesthesia Complications and No Family Hx of Anesthesia Complications History of PONV No Hx of PONV and No Hx of Motion Sickness Social History Smoking Status: Never smoker Hx Alcohol Use: Yes Alcohol type: other alcohol intake frequency: holidays/special occasions only Hx Substance Use: No substance use type: does not use Physical Exam Vital Signs Last Vital Signs Temp 36.9 C 04/30/19 07:05 Pulse 85 04/30/19 07:05 Resp 17 04/30/19 07:05 BP 176/98 H 04/30/19 07:05 Pulse Ox 97 04/30/19 07:05 ENMT Mouth: no dentition abnormality Thyromental Distance: > or= 3.5 Finger Breadths Mallampati Class: II Neck normal visual inspection Respiratory normal respiratory effort Auscultation: lungs clear to auscultation bilaterally Cardiovascular Rate/Rhythm: regular rate and regular rhythm Psychiatric Orientation: alert Testing Laboratory Results 04/30/19 06:30 04/30/19 06:30 PT 14.0 Seconds (9.0-12.0) H 04/30/19 06:30 INR 1.4 (0.9-1.1) H 04/30/19 06:30 APTT 32.7 Seconds (21.0-31.0) H 04/29/19 15:59 Urine Color Dark Yellow 04/29/19 17:30 Urine Appearance Clear (Clear) 04/29/19 17:30 Urine pH 7.5 (4.5-7.5) 04/29/19 17:30 Ur Specific [place] 1.014 (1.000-1.030) 04/29/19 17:30 Urine Protein Negative (Negative) 04/29/19 17:30 Urine Glucose (UA) Negative (Negative) 04/29/19 17:30 Urine Ketones 1+ (Negative) H 04/29/19 17:30 Urine Nitrite Negative (Negative) 04/29/19 17:30 Ur Leukocyte Esterase Negative (Negative) 04/29/19 17:30 Electrocardiogram Date: 04/29/19 Findings: + NSR @ (83) NSR. Normal ECG. Chest X-Ray Date: 04/25/19 XR chest 1V portable HISTORY: Generalized abdominal pain. COMPARISON: Chest 10/09/2008. FINDINGS: The heart is normal in size. Retrocardiac lobular density favors a moderate hiatus hernia. This remains unchanged. Stable mild perihilar interstitial prominence. This is likely chronic. No new focal lung consolidations to suggest pneumonia. No evidence for pulmonary edema. No pleural effusions. No pneumothorax. IMPRESSION: No significant change compared to the prior study. No acute process.
--- NOTE | 2019-04-29 19:23 | History & Physical Report ---
Date of Service April 29, 2019 Assessment & Plan (1) Abdominal pain: (2) Acute calculous cholecystitis: 79 yo M here with 5 day RUQ abdominal pain. Seen in the ED 04/25/19 for nausea/vomiting, then returned with persistent abdominal pain earlier today. LFTs elev and hyperbilirubinemia, U/S with interval development of mild GB distention and GB wall thickening, sludge, negative Hicks sign. Low PO intake. Patient denies anginal symptoms at rest or with exertion, dyspnea with exertion, orthopnea, claudication. EKG reviewed and shows NSR with no ST changes. Denies cardiac history although is followed by financial planning analyst because of family history of premature cardiac events in his brother and father, and others. Denies h/o murmurs. Plan: -79 yo M with normal kidney function, ASA 1, total independence with 0.03% estimated risk for perioperative cardiac events. -plan for lap choly, possible cholangiogram in the morning -clear liquids then NPO after midnight -LR @ 100 starting at 0600 -continue zosyn -new systolic ejection murmur auscultated - reviewed outpatient records and negative for murmurs - TTE ordered. FEN/GI: -clear liquids then NPO after midnight, LR @ 100 starting at 0600 DVT ppx: SCDs CODE STATUS: FULL DISPO: Med/surg. For TTE, then lap/choly in AM. Other ongoing medical problems HOLD home PO meds - ASA 81mg, glucosamine, MV, Aleve, omeprazole. (3) Systolic ejection murmur: History of Present Illness Chief Complaint: abdominal pain Primary Care Provider: Cisco Thomas MD 79 yo M here with 5 day RUQ abdominal pain. Seen in the ED 04/25/19 for nausea/vomiting, then returned with persistent abdominal pain earlier today. LFTs elev and hyperbilirubinemia, U/S with interval development of mild GB distention and GB wall thickening, sludge, negative Hicks sign. Low PO intake. Patient denies anginal symptoms at rest or with exertion, dyspnea with exertion, orthopnea, claudication. EKG shows NSR with no ST changes. Denies cardiac history although is followed by financial planning analyst because of family history of premature cardiac events in his brother and father, and others. Denies h/o murmurs. PMH HLD, diet controlled GERD OA PSH Right and left inguinal hernia repair Vasectomy cataract surgery SH Exercises regularly. Never smoker, occasional alcohol. No drug use. Allergies Allergy/AdvReac Type Severity Reaction Status Date / Time No Known Allergies Allergy Verified 04/29/19 16:15 Home Medications Home Medications Medication Instructions Recorded Confirmed Type aspirin [Aspir-81] 81 mg PO QAM 09/13/18 04/29/19 History glucosamine sulfate [Glucosamine] 1,000 mg PO QAM 09/13/18 04/29/19 History omeprazole 20 mg PO HS 09/13/18 04/29/19 History calcium polycarbophil [Fiber-Tabs] 1,250 mg PO QAM 04/25/19 04/29/19 History multivitamin 1 tab PO QAM 04/29/19 04/29/19 History naproxen sodium [Aleve] 220 mg PO Q12H PRN 04/29/19 04/29/19 History Past Med/Surg History Medical History Systolic ejection murmur Encounter for pre-operative examination Left foot infection (Acute) Gallstones GERD (gastroesophageal reflux disease) CONTROLLED Inguinal hernia Surgical History History of cataract extraction with lens replacement B/L History of colonoscopy History of esophagogastroduodenoscopy (EGD) History of hemorrhoidectomy History of herniorrhaphy LEFT INGUINAL History of vasectomy Family History Other No significant family history Social History Preferred Language: Faroese Communication Ability: Effective Algebra Teacher Required: No Beliefs That Will Affect Care: None Current Living Situation: Spouse Other Information That Helps Us Care for You: No Feels Safe at Home: Yes Safety Concerns: Feels Safe At This Time Smoking Status: Never smoker Do You Dip or Chew Tobacco: No ; Second Hand Exposure: No ; Tobacco Cessation Education Requested by Patient: No Hx Alcohol Use: No Hx Substance Use: No Review of Systems Review of Systems: All systems reviewed & are unremarkable except as noted in HPI & below Physical Exam Physical Exam: Vitals noted and within normal limits with the exception of mild htn GENERAL: Awake, alert to person, place, and time, nontoxic-appearing, in no distress. HENT: Normocephalic, atraumatic. Mucus membranes appear moist. EYES: Normal conjunctiva. Sclera non-icteric. EOMI. NECK: Supple. Full range of motion. No JVD. RESPIRATORY: Clear to auscultation. Normal work of breathing. CARDIAC: Regular rate, normal rhythm. Extremities warm and well perfused, 2+ posterior tibialis pulses bilaterally. + systolic ejection murmur 2-3/6. Neck reveals normal carotid upstrokes without bruits. ABDOMEN: Soft, non-distended. Mild tenderness to palpation in all four quadrants. No rebound or guarding. No masses. Bowel sounds are normal. Negative hicks. LOWER EXTREMITIES: Inspection of calves reveal equal size bilaterally. They are non-tender. No edema. No discoloration. NEURO: No gross focal motor deficits noted. Sensation in tact. CN II-XII g rossly in tact. . SKIN: Rash not present. No jaundice noted. Significant lesions not present. PSYCH: Appropriate mood and affect. Cooperative. Pt's is at the bedside. Exam as done by Rosa Aly MD, Tool Designer. Results & Data Vital Signs (Past 12 Hours) Vital Signs Temp Pulse Resp BP Pulse Ox 04/29/19 18:02 97 04/29/19 18:00 79 27 H 04/29/19 17:42 76 26 H 04/29/19 17:38 76 25 H 160/95 H 04/29/19 15:31 37.4 C 111 H 18 153/92 H 94 Laboratory Results 04/29/19 04/29/19 04/29/19 Range/Units 17:30 15:59 15:59 WBC (4.8-10.8) K/uL RBC (4.7-6.1) M/uL Hgb (14.0-18.0) g/dL Hct (42-52) % MCV (80-100) fL MCH (25-34) pg MCHC (32-36) g/dL RDW Std Deviation (36.4-46.3) fL RDW Coeff of Salazar (11.5-14.5) % Plt Count (130-400) K/uL MPV (7.4-10.4) fL Immature Gran % (Auto) % Neut % (Auto) % Lymph % (Auto) % [place] % (Auto) % Eos % (Auto) % Baso % (Auto) % Immature Gran # (Auto) (0.00-0.02) K/uL Neut # (Auto) (1.4-6.5) K/uL Lymph # (Auto) (1.2-3.4) K/uL [place] # (Auto) (0.11-0.59) K/uL Eos # (Auto) (0-0.5) K/uL Baso # (Auto) (0-0.2) K/uL PT 12.9 H (9.0-12.0) Seconds INR 1.3 H (0.9-1.1) APTT 32.7 H (21.0-31.0) Seconds PTT Ratio 1.2 Sodium 135 L (136-145) mmol/L Potassium 3.5 (3.5-5.1) mmol/L Chloride 104 (98-107) mmol/L Carbon Dioxide 24 (21-32) mmol/L Anion Gap 7.0 (3-11) BUN 14 (7-18) mg/dl Creatinine 0.84 (0.6-1.4) mg/dl Est Cr Clr Drug Dosing 69.0 ml/min Est GFR ( Amer) 95.2 Est GFR (Non-Af Amer) 82.1 BUN/Creatinine Ratio 16.7 (10-20) Glucose 101 H (70-99) mg/dl Calcium 8.3 L (8.5-10.1) mg/dl Total Bilirubin 1.7 H (0.2-1) mg/dl AST 23 (15-37) U/L ALT 34 (12-78) U/L Alkaline Phosphatase 81 (45-117) U/L Troponin I < 0.015 (0-0.045) ng/ml C-Reactive Protein 11.60 H (0-0.29) mg/dl Total Protein 7.2 (6.4-8.2) gm/dl Albumin 3.1 L (3.4-5.0) gm/dl Globulin 4.1 H (2.5-4.0) gm/dl Albumin/Globulin Ratio 0.8 L (0.9-2) Lipase 63 L (73-393) U/L Urine Color Dark Yellow Urine Appearance Clear (Clear) Urine pH 7.5 (4.5-7.5) Ur Specific [place] 1.014 (1.000-1.030) Urine Protein Negative (Negative) Urine Glucose (UA) Negative (Negative) Urine Ketones 1+ H (Negative) Urine Blood Negative (Negative) Urine Nitrite Negative (Negative) Urine Bilirubin Negative (Negative) Urine Urobilinogen Positive H (Negative) Ur Leukocyte Esterase Negative (Negative) 04/29/19 Range/Units 15:59 WBC 13.81 H (4.8-10.8) K/uL RBC 4.38 L (4.7-6.1) M/uL Hgb 14.9 (14.0-18.0) g/dL Hct 40.6 L (42-52) % MCV 92.7 (80-100) fL MCH 34.0 (25-34) pg MCHC 36.7 H (32-36) g/dL RDW Std Deviation 42.2 (36.4-46.3) fL RDW Coeff of [place]azar 12.4 (11.5-14.5) % Plt Count 221 (130-400) K/uL MPV 9.9 (7.4-10.4) fL Immature Gran % (Auto) 0.3 % Neut % (Auto) 78.9 % Lymph % (Auto) 9.8 % [place] % (Auto) 10.3 % Eos % (Auto) 0.5 % Baso % (Auto) 0.2 % Immature Gran # (Auto) 0.04 H (0.00-0.02) K/uL Neut # (Auto) 10.89 H (1.4-6.5) K/uL Lymph # (Auto) 1.36 (1.2-3.4) K/uL [place] # (Auto) 1.42 H (0.11-0.59) K/uL Eos # (Auto) 0.07 (0-0.5) K/uL Baso # (Auto) 0.03 (0-0.2) K/uL PT (9.0-12.0) Seconds INR (0.9-1.1) APTT (21.0-31.0) Seconds PTT Ratio Sodium (136-145) mmol/L Potassium (3.5-5.1) mmol/L Chloride (98-107) mmol/L Carbon Dioxide (21-32) mmol/L Anion Gap (3-11) BUN (7-18) mg/dl Creatinine (0.6-1.4) mg/dl Est Cr Clr Drug Dosing ml/min Est GFR ( Amer) Est GFR (Non-Af Amer) BUN/Creatinine Ratio (10-20) Glucose (70-99) mg/dl Calcium (8.5-10.1) mg/dl Total Bilirubin (0.2-1) mg/dl AST (15-37) U/L ALT (12-78) U/L Alkaline Phosphatase (45-117) U/L Troponin I (0-0.045) ng/ml C-Reactive Protein (0-0.29) mg/dl Total Protein (6.4-8.2) gm/dl Albumin (3.4-5.0) gm/dl Globulin (2.5-4.0) gm/dl Albumin/Globulin Ratio (0.9-2) Lipase (73-393) U/L Urine Color Urine Appearance (Clear) Urine pH (4.5-7.5) Ur Specific [place] (1.000-1.030) Urine Protein (Negative) Urine Glucose (UA) (Negative) Urine Ketones (Negative) Urine Blood (Negative) Urine Nitrite (Negative) Urine Bilirubin (Negative) Urine Urobilinogen (Negative) Ur Leukocyte Esterase (Negative) Supervising Physician Co-Signing Physician Notes Pt seen/examined in conjunction with resident MD Izzy Aly. Orders and plan of admission formulated with resident. 79 y/o with an unremarkable history that includes GERD and HDL. He is admitted with acute cholecystitis and consideration for surgery. OE AAO x 3 S1,2 R - prominent systolic murmur CTAB Minimal RUQ tenderness No CCE No deficits P: The pt's murmur is of concern as we could not find mention of this during previous exams with [facility] his PCP and financial planning analyst. We would not clear him for surgery therefore, prior to an echo Aside from this he has minimal risk factors No changes have been effected to his med regimen He will be kept NPO pending surgery evaluation PG Care Time/CCT Total # of Minutes Spent Total Time Spent with Patient: Total time spent is greater than 50% in coordination of care (as documented) at patient's floor/unit and/or counseling patient: Resident Activity Tracking Resident Involvement: Resident Care Provided Care Provided: Adult [facility] Medicine (1) Abdominal pain Abdominal location: epigastric Qualified Code(s): R10.13 - Epigastric pain
[2019-04-29] MEDS ORDERED: MAGNESIUM HYDROXIDE SUSP 30 ML UDC PO PRN (21:08)
[2019-04-29] MEDS ORDERED: POLYETHYLENE (MIRALAX) 17 GM PACK PO PRN (21:08)
[2019-04-29] MEDS ORDERED: ZOLPIDEM TARTRATE 5 MG TAB PO PRN (21:08)
[2019-04-29] MEDS ORDERED: ACETAMINOPHEN 325 MG TAB PO PRN (21:08)
[2019-04-29] MEDS ORDERED: ALUMINUM/MAGNESIUM SUSP 30 ML UDC PO PRN (21:08)
[2019-04-29] MEDS ORDERED: ACETAMINOPHEN 1,000 MG/100 ML VIAL IV STA (21:57)
[2019-04-29] MEDS: LACTATED RINGER'S 1,000 ML IV SCH (22:00)
[2019-04-29] MEDS: ONDANSETRON INJ 2 MG/ML 2 ML VIAL IV PRN (22:04)
[2019-04-30] MEDS ORDERED: ACETAMINOPHEN 1,000 MG/100 ML VIAL IV PRN (01:00)
[2019-04-30] MEDS: PIPERACILLIN/TAZOBACTAM 3.375 GM in DEXTROSE 5% 100 ML IV SCH ×3 (03:00→18:37)
[2019-04-30] MEDS: ONDANSETRON INJ 2 MG/ML 2 ML VIAL IV PRN (04:20)
[2019-04-30] MEDS ORDERED: KETOROLAC TROMETHAMINE 15 MG/ML VIAL IV ONE (04:34)
[2019-04-30] MEDS ORDERED: LACTATED RINGER'S 1,000 ML IV SCH (06:00)
[2019-04-30] MEDS ORDERED: DEXAMETHASONE SOD INJ 4 MG/ML VIAL ONE (06:48)
[2019-04-30] MEDS ORDERED: ONDANSETRON INJ 2 MG/ML 2 ML VIAL ONE (06:48)
[2019-04-30] MEDS ORDERED: PROPOFOL IV EMULSION 10 MG/ML 20 ML VIAL IV ONE (06:48)
[2019-04-30] MEDS ORDERED: LIDOCAINE HCL 2% 2 ML VIAL/AMP(20MG/ML) INFIL ONE (06:48)
[2019-04-30] MEDS ORDERED: MIDAZOLAM HCL 1 MG/ML 2ML VIAL ONE (06:49)
[2019-04-30] MEDS ORDERED: fentaNYL citrate 100 MCG/2 ML VIAL ONE ×3 (06:49→08:39)
[2019-04-30 06:51] LABS: Basophils # (auto) 0.02 K/uL (0-0.2); Basophils % (auto) 0.1 %; Eosinophils % (auto) 0.7 %; Hematocrit (blood only) 39.4 % (42-52); Immature Granulocytes # (auto) 0.04 K/uL (0.00-0.02); Immature Granulocytes % (auto) 0.3 %; Lymphocytes # (auto) 0.84 K/uL (1.2-3.4); Lymphocytes % (auto) 6.2 %; Mean Corpuscular Hgb Conc 35.5 g/dL (32-36); Mean Corpuscular Volume 92.3 fL (80-100); Mean Platelet Volume 9.8 fL (7.4-10.4); Monocytes # (auto) 1.17 K/uL (0.11-0.59); Monocytes % (auto) 8.7 %; Neutrophils # (auto) 11.33 K/uL (1.4-6.5); Platelet Count 208 K/uL (130-400); RDW Coefficient of Variation 12.6 % (11.5-14.5); RDW Standard Deviation 42.6 fL (36.4-46.3); Red Blood Count 4.27 M/uL (4.7-6.1)
[2019-04-30 07:00] LABS: INR 1.4 (0.9-1.1)
[2019-04-30 07:15] LABS: Albumin Level 2.8 gm/dl (3.4-5.0); BUN Creatinine Ratio 13.4 (10-20); Calcium 8.3 mg/dl (8.5-10.1); Creatinine Clr Calc Pharmacy 65.8 ml/min; Est GFR (African American) 93.4; Est GFR (Non-African American) 80.6; Potassium 3.7 mmol/L (3.5-5.1)
[2019-04-30] MEDS ORDERED: BUPIVACAINE 0.5 % 5 MG/1 ML MPF 30ML VIAL ONE (07:17)
[2019-04-30] MEDS ORDERED: ACETAMINOPHEN 1000 MG/100 ML IV IV ONE (07:19)
[2019-04-30] MEDS ORDERED: ONDANSETRON INJ 2 MG/ML 2 ML VIAL IV PRN (07:28)
[2019-04-30] MEDS ORDERED: ATROPINE SULFATE 0.1 MG/ML 10ML SYR IV PRN (07:28)
[2019-04-30] MEDS ORDERED: fentaNYL citrate 100 MCG/2 ML VIAL IV PRN (07:28)
[2019-04-30] MEDS ORDERED: PROMETHAZINE HCL 6.25 MG in SODIUM CHLORIDE 0.9% 50 ML IV PRN (07:28)
[2019-04-30] MEDS ORDERED: ePHEDrine sulfate 50 MG/ML AMP IV PRN (07:28)
[2019-04-30] MEDS ORDERED: HYDROmorphone INJ 1 MG/ML SYRINGE IV PRN (07:28)
--- NOTE | 2019-04-30 07:31 | Surgery Progress Note ---
Date of Service April 30, 2019 Assessment & Plan (1) Acute cholecystitis: 79-year-old male with acute calculus cholecystitis Plan for laparoscopic cholecystectomy, possible cholangiogram today in the operating room The risks were reviewed as well as the recovery from surgery All questions were answered Present on Admission?: Yes Subjective 79-year-old male admitted overnight with acute calculus cholecystitis. He had some pain medicine this morning he is feeling much better. No other changes. Physical Exam Constitutional: WD/WN, vitals as above Gastrointestinal (Abdomen): Percussion/Palpation: + abdomen tender (Tender to palpation in the right upper quadrant, negative Hicks sign) and abdomen soft; no guarding and no hepatosplenomegaly Results & Data Vital Signs (Past 12 Hours) Vital Signs Temp Pulse Resp BP Pulse Ox 04/30/19 07:05 36.9 C 85 17 176/98 H 97 04/30/19 03:25 168/83 H 04/30/19 03:20 69 170/85 H 04/29/19 23:10 37.2 C 68 18 154/80 H 96 04/29/19 21:08 37.8 C H 81 20 181/89 H 94 04/29/19 20:58 78 18 146/79 H 99 04/29/19 20:15 85 17 155/78 H 97 Laboratory Results Laboratory Results - last 24 hr 04/29/19 04/29/19 04/29/19 15:59 15:59 15:59 WBC 13.81 H RBC 4.38 L Hgb 14.9 Hct 40.6 L MCV 92.7 MCH 34.0 MCHC 36.7 H RDW Std Deviation 42.2 RDW Coeff of Salazar 12.4 Plt Count 221 MPV 9.9 Immature Gran % (Auto) 0.3 Neut % (Auto) 78.9 Lymph % (Auto) 9.8 [place] % (Auto) 10.3 Eos % (Auto) 0.5 Baso % (Auto) 0.2 Immature Gran # (Auto) 0.04 H Neut # (Auto) 10.89 H Lymph # (Auto) 1.36 [place] # (Auto) 1.42 H Eos # (Auto) 0.07 Baso # (Auto) 0.03 PT 12.9 H INR 1.3 H APTT 32.7 H PTT Ratio 1.2 Sodium 135 L Potassium 3.5 Chloride 104 Carbon Dioxide 24 Anion Gap 7.0 BUN 14 Creatinine 0.84 Est Cr Clr Drug Dosing 69.0 Est GFR ( Amer) 95.2 Est GFR (Non-Af Amer) 82.1 BUN/Creatinine Ratio 16.7 Glucose 101 H Calcium 8.3 L Total Bilirubin 1.7 H AST 23 ALT 34 Alkaline Phosphatase 81 Troponin I < 0.015 C-Reactive Protein 11.60 H Total Protein 7.2 Albumin 3.1 L Globulin 4.1 H Albumin/Globulin Ratio 0.8 L Lipase 63 L Urine Color Urine Appearance Urine pH Ur Specific [place] Urine Protein Urine Glucose (UA) Urine Ketones Urine Blood Urine Nitrite Urine Bilirubin Urine Urobilinogen Ur Leukocyte Esterase 04/29/19 04/30/19 04/30/19 17:30 06:30 06:30 WBC 13.50 H RBC 4.27 L Hgb 14.0 Hct 39.4 L MCV 92.3 MCH 32.8 MCHC 35.5 RDW Std Deviation 42.6 RDW Coeff of Salazar 12.6 Plt Count 208 MPV 9.8 Immature Gran % (Auto) 0.3 Neut % (Auto) 84.0 Lymph % (Auto) 6.2 [place] % (Auto) 8.7 Eos % (Auto) 0.7 Baso % (Auto) 0.1 Immature Gran # (Auto) 0.04 H Neut # (Auto) 11.33 H Lymph # (Auto) 0.84 L [place] # (Auto) 1.17 H Eos # (Auto) 0.10 Baso # (Auto) 0.02 PT 14.0 H INR 1.4 H APTT PTT Ratio Sodium Potassium Chloride Carbon Dioxide Anion Gap BUN Creatinine Est Cr Clr Drug Dosing Est GFR ( Amer) Est GFR (Non-Af Amer) BUN/Creatinine Ratio Glucose Calcium Total Bilirubin AST ALT Alkaline Phosphatase Troponin I C-Reactive Protein Total Protein Albumin Globulin Albumin/Globulin Ratio Lipase Urine Color Dark Yellow Urine Appearance Clear Urine pH 7.5 Ur Specific [place] 1.014 Urine Protein Negative Urine Glucose (UA) Negative Urine Ketones 1+ H Urine Blood Negative Urine Nitrite Negative Urine Bilirubin Negative Urine Urobilinogen Positive H Ur Leukocyte Esterase Negative 04/30/19 06:30 WBC RBC Hgb Hct MCV MCH MCHC RDW Std Deviation RDW Coeff of Salazar Plt Count MPV Immature Gran % (Auto) Neut % (Auto) Lymph % (Auto) [place] % (Auto) Eos % (Auto) Baso % (Auto) Immature Gran # (Auto) Neut # (Auto) Lymph # (Auto) [place] # (Auto) Eos # (Auto) Baso # (Auto) PT INR APTT PTT Ratio Sodium 137 Potassium 3.7 Chloride 103 Carbon Dioxide 27 Anion Gap 6.0 BUN 12 Creatinine 0.88 Est Cr Clr Drug Dosing 65.8 Est GFR ( Amer) 93.4 Est GFR (Non-Af Amer) 80.6 BUN/Creatinine Ratio 13.4 Glucose 105 H Calcium 8.3 L Total Bilirubin Pending AST 21 ALT 32 Alkaline Phosphatase Pending Troponin I C-Reactive Protein Total Protein Pending Albumin 2.8 L Globulin Pending Albumin/Globulin Ratio Pending Lipase Urine Color Urine Appearance Urine pH Ur Specific [place] Urine Protein Urine Glucose (UA) Urine Ketones Urine Blood Urine Nitrite Urine Bilirubin Urine Urobilinogen Ur Leukocyte Esterase PG Care Time/CCT Total # of Minutes Spent Total Time Spent with Patient: Total time spent is greater than 50% in coordination of care (as documented) at patient's floor/unit and/or counseling patient:
[2019-04-30 07:32] LABS: Albumin Globulin Ratio 0.8 (0.9-2); Bilirubin,Total 2.5 mg/dl (0.2-1); Globulin 3.7 gm/dl (2.5-4.0); Total Protein 6.5 gm/dl (6.4-8.2)
[2019-04-30] MEDS ORDERED: CONRAY 60% 50 ML VIAL ONE (07:51)
[2019-04-30] MEDS ORDERED: GLYCOPYRROLATE 0.2 MG/ML VIAL ONE (08:13)
[2019-04-30] MEDS ORDERED: cefOXitin 2,000 MG in DEXTROSE 5% 50 ML IV ONE (08:35)
--- NOTE | 2019-04-30 08:38 | Fluoroscopy Report ---
INTRAOPERATIVE CHOLANGIOGRAM HISTORY: Post cholecystectomy. FLUOROSCOPY TIME: 6 seconds. Single fluoroscopic spot image of the right upper quadrant. FINDINGS: Fluoroscopy was provided for an intraoperative cholangiogram status post cholecystectomy. C ontrast was injected through the cystic duct remnant. The common bile duct is normal in course and ca liber. There are no filling defects seen within the common bile duct to suggest a retained stone. Co ntrast extends into the small bowel. There is no intrahepatic bile duct dilatation. IMPRESSION: Fluoroscopy provided for an intraoperative cholangiogram status post cholecystectomy. No filling defects within the common bile duct. Electronically signed by: Michi David M.D. 04/30/2019 8:37 AM
--- NOTE | 2019-04-30 08:56 | Operative Report ---
Post Operative Report Pre & Post Diagnosis Operation Date: 04/30/19 07:45 Pre-Op Diagnosis: Abdominal pain, Acute calculous cholecystitis Post-Op Diagnosis: Abdominal pain, Acute calculous cholecystitis Procedure Operation Date: 04/30/19 07:45 Actual Procedures p Laparoscopic Cholecystectomy with Cholangiogram(Not Applicable) - Ag Madrigal DO, LYNN Surgeon Ag Madrigal DO, LYNN State Editor Jorge Jacques Estimated Blood Loss 8 Findings Consistent with Post-Op Diagnosis Significant inflammation. Critical view of safety obtained. Cholangiogram performed and no filling defects, good filling of the duodenum and hepatic radicles. Cystic duct and artery doubly clipped and divided. Good hemostasis. Specimens Gallbladder Drains None Anesthesia Type General Complications none Disposition Accompanied Patient To Recovery: No Disposition: Recovery Room Indications 79-year-old male admitted for acute calculus cholecystitis, plan for la paroscopic cholecystectomy with possible cholangiogram. The risks of the procedure were discussed, all questions were answered, and the patient agreed to proceed with surgery as planned. Description of Procedure The patient was properly identified, consented, and taken to the operating room where he was placed in the supine position. General endotracheal anesthesia was induced. SCDs and a safety belt were placed. Preoperative antibiotics were administered. The patient's abdomen was prepped and draped in the standard sterile fashion. A surgical timeout was performed and all parties were in agreement that this was the correct patient and procedure to be performed and we continued as planned. An incision was made superior and to the left of the umbilicus overlying the rectus muscle and the Veress needle was inserted. Saline drop test confirmed entry into the peritoneum. The abdomen was insufflated with carbon dioxide which the patient tolerated without incident. The abdomen was then entered using the Optiview technique and a 5 mm trocar. The laparoscope was inserted and no damage from initial trocar or Veress needle placement was noted, no gross abnormalities were noted within the 4 quadrants of the abdomen. An 11 mm port was placed in the subxiphoid position and two 5 mm ports were then placed in the right subcostal position. The patient was placed in reverse Trendelenburg position and rotated towards the left. The gallbladder was acutely and significantly inflamed. An aspiration needle was used to decompress the gallbladder to allow for retraction. The dome of the gallbladder was retracted towards the left upper quadrant and the infundibulum was retracted toward the right lower quadrant revealing Calot's triangle. Peritoneal attachments were taken down with electrocautery and blunt dissection. The cystic duct and artery were circumferentially dissected. A window of safety was obtained showing the cystic duct entering the gallbladder with no aberrant structures noted. The [facility] cholangiocatheter was then used to perform an intraoperative cholangiogram which showed no filling defects, and good filling of the duodenum and hepatic radicals with contrast. The cystic duct and artery were doubly clipped and divided. The gallbladder was then lifted off the gallbladder fossa with electrocautery. The gallbladder was placed in an Endo Catch bag and removed through the subxyphoid port site. The subxiphoid skin and fascial incisions had to be extended to allow the gallbladder to be removed. The right upper quadrant was irrigated and hemostasis was found to be good. 5 mm trochars were removed under direct visualization and the abdomen was allowed to collapse. The subxyphoid port site fascia was closed with 0 Vicryl suture. The wound was irrigated, and the skin of all ports was closed with 4-0 Monocryl subcuticular sutures. Dermabond was placed over the wounds. The patient was extubated in the operating room and taken to the PACU where he recovered without apparent incident. All sponge, instrument and needle counts were correct at the conclusion of the procedure. The patient tolerated the procedure well. The physician's enrichment assistant was present and scrubbed for the entirety of the case and was essential in positioning the patient, prepping and draping, retraction and exposure, driving the laparoscope, removal of the gallbladder, closure the incisions, and placement of the dressings. I attest to the content of the Intraoperative Record and any orders documented therein. Any exceptions are noted below.
--- NOTE | 2019-04-30 09:27 | Anesthesiology Progress Note ---
Date of Service April 30, 2019 Anesthesia Post Procedure Vital Signs Vital Signs: Temp Pulse Pulse Pulse Resp BP BP 04/30/19 09:20 75 22 153/80 H 04/30/19 09:10 81 17 153/95 H 04/30/19 09:04 36.6 C 84 12 171/81 H 04/30/19 07:05 36.9 C 85 17 176/98 H 04/30/19 03:25 168/83 H 04/30/19 03:20 69 170/85 H 04/29/19 23:10 37.2 C 68 18 154/80 H 04/29/19 21:08 37.8 C H 81 20 181/89 H 04/29/19 20:58 78 18 146/79 H 04/29/19 20:15 85 17 155/78 H 04/29/19 18:02 04/29/19 18:00 79 27 H 04/29/19 17:42 76 26 H 04/29/19 17:38 76 25 H 160/95 H 04/29/19 15:31 37.4 C 111 H 18 153/92 H Pulse Ox 04/30/19 09:20 99 04/30/19 09:10 98 04/30/19 09:04 99 04/30/19 07:05 97 04/30/19 03:25 04/30/19 03:20 04/29/19 23:10 96 04/29/19 21:08 94 04/29/19 20:58 99 04/29/19 20:15 97 04/29/19 18:02 97 04/29/19 18:00 04/29/19 17:42 04/29/19 17:38 04/29/19 15:31 94 Pain Intensity Abdomen: Pain Intensity: 5 Transfer of Care Handoff Completed per policy Notes Mental Status: alert / awake / arousable Patient Amnestic to Procedure: Yes Nausea / Vomiting: adequately controlled Pain: adequately controlled Airway Patency, RR, SpO2: stable & adequate BP & HR: stable & adequate Hydration State: stable & adequate Anesthetic Complications: no major complications apparent
[2019-04-30] MEDS ORDERED: MoRPHine SULFATE 4 MG/ML 1 ML CARP\\VIAL IV PRN (09:58)
[2019-04-30] MEDS ORDERED: OXYCODONE/ACETAMINOPHEN 5mg/325mg TAB PO PRN ×2 (09:58)
[2019-04-30] MEDS: LACTATED RINGER'S 1,000 ML IV SCH ×3 (10:00→22:40)
--- NOTE | 2019-04-30 10:37 | Family Medicine Progress Note ---
Date of Service April 30, 2019 Assessment & Plan (1) Abdominal pain: (2) Acute calculous cholecystitis: Mr. Estevez is an 79 year old male with a past medical history of hyperlipidemia, GERD and osteoarthritis who presented to the emergency department with here with 5 day RUQ abdominal pain. Seen in the ED 04/25/19 for nausea/vomiting, then returned with persistent abdominal pain on 04/29. U/S with interval development of mild GB distention and GB wall thickening, sludge, negative Hicks sign. Acute cholecystitis - s/p lap mary ellen w/Dr. Madrigal today - continue IV zosyn - pt advanced to full diet - on LR at 80 mls/hr - Tylenol, morphine, Percocet as needed for pain, however patient reports he is pain-free Murmur - admitting team heard a systolic ejection murmur - ECHO ordered -> Normal left ventricular systolic function with an ejection fraction of 60 to 65%. Moderate aortic valve sclerosis without significant stenosis. Mild aortic regurg. GERD -Continue home omeprazole Hold home Aleve and aspirin given recent surgery. Can resume on discharge. FEN/GI: advanced to regular diet DVT ppx: SCDs CODE STATUS: FULL DISPO: remains on med/surg. Anticipate d/c tomorrow (3) Systolic ejection murmur: Supervising Physician Co-Signing Physician Notes Resident Physician Supervision Note: I independently interviewed and examined the patient and verified the quijano history and physical, reviewed labs and image studies, discussed the case with the resident Dr. Cleary and agree with the findings and care plan. Subjective Mr. Estevez reports he feels well today. He was seen after his laparoscopic cholecystectomy. He reports his pain is down to a 0. He is eager to eat and denies any nausea or vomiting. He has no other concerns. Review of Systems Constitutional: no fever and no chills Respiratory: no cough and no dyspnea Cardiovascular: no chest pain, no palpitations, no edema and no calf pain Gastrointestinal: no abdominal pain, no nausea and no vomiting Physical Exam Constitutional: WD/WN, vitals as above Respiratory: normal respiratory effort, lungs clear to auscultation Auscultation: lungs clear to auscultation bilaterally Cardiovascular: RRR, no murmur, no edema Rate/Rhythm: regular rate and regular rhythm Gastrointestinal (Abdomen): Percussion/Palpation: abdomen soft; abdomen nontender, no guarding and abdomen not rigid Results & Data Vital Signs (Past 12 Hours) Vital Signs Temp Pulse Pulse Resp BP Pulse Ox 04/30/19 10:18 36.6 C 86 17 160/90 H 94 04/30/19 09:50 36.9 C 87 18 167/82 H 94 04/30/19 09:40 36.6 C 79 22 137/75 94 04/30/19 09:30 79 22 142/75 H 94 04/30/19 09:20 75 22 153/80 H 99 04/30/19 09:10 81 17 153/95 H 98 04/30/19 09:04 36.6 C 84 12 171/81 H 99 04/30/19 07:05 36.9 C 85 17 176/98 H 97 04/30/19 03:25 168/83 H 04/30/19 03:20 69 170/85 H 04/29/19 23:10 37.2 C 68 18 154/80 H 96 PG Care Time/CCT Total # of Minutes Spent Total Time Spent with Patient: Total time spent is greater than 50% in coordination of care (as documented) at patient's floor/unit and/or counseling patient: Resident Activity Tracking Resident Involvement: Resident Care Provided Care Provided: Adult Hospital Medicine (1) Abdominal pain Abdominal location: epigastric Qualified Code(s): R10.13 - Epigastric pain
[2019-04-30] MEDS ORDERED: CHLORASEPTIC 1.4% SOLN 180 ML BTL MT PRN (14:11)
[2019-05-01] MEDS: PIPERACILLIN/TAZOBACTAM 3.375 GM in DEXTROSE 5% 100 ML IV SCH (02:01)
[2019-05-01 06:45] LABS: Basophils # (auto) 0.01 K/uL (0-0.2); Basophils % (auto) 0.1 %; Hematocrit (blood only) 37.9 % (42-52); Hemoglobin 13.5 g/dL (14.0-18.0); Immature Granulocytes # (auto) 0.05 K/uL (0.00-0.02); Immature Granulocytes % (auto) 0.3 %; Lymphocytes # (auto) 1.15 K/uL (1.2-3.4); Mean Corpuscular Hgb Conc 35.6 g/dL (32-36); Mean Platelet Volume 9.9 fL (7.4-10.4); Monocytes # (auto) 0.94 K/uL (0.11-0.59); Monocytes % (auto) 5.8 %; Neutrophils # (auto) 14.17 K/uL (1.4-6.5); Neutrophils % (auto) 86.8 %; Platelet Count 258 K/uL (130-400); RDW Coefficient of Variation 12.6 % (11.5-14.5); RDW Standard Deviation 43.2 fL (36.4-46.3); Red Blood Count 4.03 M/uL (4.7-6.1); White Blood Count 16.32 K/uL (4.8-10.8)
[2019-05-01 07:09] LABS: Albumin Level 2.6 gm/dl (3.4-5.0); BUN Creatinine Ratio 12.7 (10-20); Calcium 8.9 mg/dl (8.5-10.1); Creatinine Clr Calc Pharmacy 62.3 ml/min; Est GFR (African American) 88.9; Est GFR (Non-African American) 76.7; Potassium 4.1 mmol/L (3.5-5.1)
[2019-05-01 07:14] LABS: Albumin Globulin Ratio 0.7 (0.9-2); Bilirubin,Total 1.1 mg/dl (0.2-1); Globulin 3.7 gm/dl (2.5-4.0); Total Protein 6.3 gm/dl (6.4-8.2)
--- NOTE | 2019-05-01 07:55 | Discharge Summary ---
Date of Service May 01, 2019 Admission HPI Per Admitting Provider 79 yo M here with 5 day RUQ abdominal pain. Seen in the ED 04/25/19 for nausea/vomiting, then returned with persistent abdominal pain earlier today. LFTs elev and hyperbilirubinemia, U/S with interval development of mild GB distention and GB wall thickening, sludge, negative Hicks sign. Low PO intake. Patient denies anginal symptoms at rest or with exertion, dyspnea with exertion, orthopnea, claudication. EKG shows NSR with no ST changes. Denies cardiac history although is followed by pitch filler because of family history of premature cardiac events in his brother and father, and others. Denies h/o murmurs. PMH HLD, diet controlled GERD OA PSH Right and left inguinal hernia repair Vasectomy cataract surgery SH Exercises regularly. Never smoker, occasional alcohol. No drug use. Admission Exam Per Admitting Provider Vitals noted and within normal limits with the exception of mild htn GENERAL: Awake, alert to person, place, and time, nontoxic-appearing, in no distress. HENT: Normocephalic, atraumatic. Mucus membranes appear moist. EYES: Normal conjunctiva. Sclera non-icteric. EOMI. NECK: Supple. Full range of motion. No JVD. RESPIRATORY: Clear to auscultation. Normal work of breathing. CARDIAC: Regular rate, normal rhythm. Extremities warm and well perfused, 2+ posterior tibialis pulses bilaterally. + systolic ejection murmur 2-3/6. Neck reveals normal carotid upstrokes without bruits. ABDOMEN: Soft, non-distended. Mild tenderness to palpation in all four quadrants. No rebound or guarding. No masses. Bowel sounds are normal. Negative hicks. LOWER EXTREMITIES: Inspection of calves reveal equal size bilaterally. They are non-tender. No edema. No discoloration. NEURO: No gross focal motor deficits noted. Sensation in tact. CN II-XII grossly in tact. . SKIN: Rash not present. No jaundice noted. Significant lesions not present. PSYCH: Appropriate mood and affect. Cooperative. Principal Diagnosis Cholecystitis, status post cholecystectomy Discharge Exam Constitutional WD/WN, vitals as above Respiratory normal respiratory effort, lungs clear to auscultation Auscultation: lungs clear to auscultation bilaterally Cardiovascular RRR, no murmur, no edema Gastrointestinal (Abdomen) Percussion/Palpation: abdomen soft; abdomen nontender, no guarding and abdomen not rigid Incisions clean, dry and intact Discharge Data Allergies Allergy/AdvReac Type Severity Reaction Status Date / Time No Known Allergies Allergy Verified 04/29/19 16:15 Consultations 04/29/19 18:25 ED Decision to Admit Stat Procedures Performed Operation Date: 04/30/19 07:45 Actual Procedures p Laparoscopic Cholecystectomy with Cholangiogram(Not Applicable) - Ag Madrigal, , FACS Ordered Studies 04/29/19 15:49 US gallbladder Stat 04/30/19 07:50 [place] cholangiogram OR Routine Hospital Course (1) Abdominal pain: (2) Acute calculous cholecystitis: Mr. Estevez is an 79 year old male with a past medical history of hyperlipidemia, GERD and osteoarthritis who presented to the emergency department with here with 5 day RUQ abdominal pain. Seen in the ED 04/25/19 for nausea/vomiting, then returned with persistent abdominal pain on 04/29. U/S with interval development of mild GB distention and GB wall thickening, sludge, negative Hicks sign. Acute cholecystitis - s/p lap mary ellen w/Dr. Madrigal on 04/30. f/u with surgery in 2 weeks. - initially treated with IV zosyn, no need for abx on discharge - pt advanced to full diet and tolerating this well - pt reports no pain after surgery, discharged w/prn oxycodone/acetaminophen - Hgb stable at 13.5 on discharge Mild Aortic Regurgitation - admitting team heard a systolic ejection murmur - ECHO ordered -> Normal left ventricular systolic function with an ejection fraction of 60 to 65%. Moderate aortic valve sclerosis without significant stenosis. Mild aortic regurg. - ECHO findings were discussed w/patient. He has a pitch filler appt in December. GERD -Continue home omeprazole Home Aleve and aspirin held whilst in hospital, can resume on discharge. (3) Systolic ejection murmur: Total Time Total Time Spent Total Time Spent (In Minutes): 30 Discharge Plan Discharge Items Patient Disposition: Home - Self-Care Reason For Visit: CHOLECYSTITIS Discharge Diagnosis: Inflammation of Gallbladder, status post cholecystectomy Discharge Goals: Decrease discomfort Activity: Per 'Additional Instructions' section Activity Comment: No heavy lifting or strenuous activity for 3 weeks Lifting: No more than 25 pounds Lifting Comment: for 3 weeks Bathing Comment: you may shower, do not soak or scrub wounds for 2 days Exercise/Sports: Gradually increase as tolerated Driving/Machine Use: Resume 3 days after discharge Non-emergency contact: Surgeon Call non-emergency contact if: you have any medication questions, your pain is not controlled, you have a fever, your temperature is above 101.5 and your wound has increased redness Follow-up/Referrals: Cisco Thomas MD [Primary Care Provider] - Ag Madrigal DO, FACS [Physician] - (Call to make an appointment in 2 weeks) Diet: Regular Addtl Provider Instructions: Mr. Estevez, you were admitted to [facility] for abdominal pain and vomiting. You were found to have inflammation of your gallbladder. You were seen by our surgical team, who performed a laparoscopic removal of your gallbladder. The surgery went very well. You were treated with IV antibiotics. Your hemoglobin, which is your blood level, did not drop after the surgery. The admitting team was concerned as they heard a murmur when they listened to your heart and therefore they ordered an ultrasound of your heart. This showed that your heart is functioning very well, however you have some mild aortic regurgitation, which she means that your aortic valve is leaky. This does not require surgical intervention at this time. We recommend following up with your family doctor and pitch filler who can keep an eye on this. We will be sending you home with pain medication that you can use as needed for pain. Please do not drive or operate heavy machinery while you take this medication, as it can make you drowsy. If you have any fever, chills, abdominal pain, or vomiting, please seek medical attention. Otherwise, you can take all of your other medications as prescribed. Prescriptions: New oxycodone-acetaminophen 5-325 mg tablet 1 - 2 tab PO Q6H MDD 6 PRN (Reason: pain) Qty: 14 RF: 0 Continued glucosamine sulfate [Glucosamine] 500 mg Tablet 1,000 mg PO QAM RF: 0 aspirin [Aspir-81] 81 mg Tablet,Delayed Release (Dr/Ec) 81 mg PO QAM RF: 0 omeprazole 20 mg Capsule,Delayed Release(Dr/Ec) 20 mg PO HS RF: 0 calcium polycarbophil [Fiber-Tabs] 625 mg Tablet 1,250 mg PO QAM RF: 0 multivitamin Tablet 1 tab PO QAM RF: 0 naproxen sodium [Aleve] 220 mg Tablet 220 mg PO Q12H PRN (Reason: Pain) RF: 0 Stand-Alone Forms: [facility] [employer] Drew/Other Patient Handouts: Cholecystectomy Laparoscopic Dc Discharge Orders: Discharge Order (Routine); Ordered 05/01/19 Ordered By: Allison Cleary Admission Data Admit Date/Time: 04/29/19 20:05 Attending Provider: Radha Amador Admit Provider: Rosa Aly Primary Care Provider: Cisco Thomas Other Providers: You Ch ; Ang Brower Service: Medical Other Interventions: Discharge Summary Assessment (RN) Last Done: 05/01/19 10:15 Pending Studies at Discharge: Yes Studies:: pathology DC Date/Time DO NOT enter until pt leaves facility: 05/01/19 10:25 Supervising Physician Co-Signing Physician Notes Resident Physician Supervision Note: I independently interviewed and examined the patient and verified the quijano history and physical, reviewed labs and image studies, discussed the case with the resident Dr. Cleary and agree with the findings and care plan. Time spent in discharge 35 min Resident Activity Tracking Resident Involvement: Resident Care Provided Care Provided: Adult Hospital Medicine
--- NOTE | 2019-05-01 09:11 | Surgery Progress Note ---
Date of Service May 01, 2019 Assessment & Plan (1) Acute calculous cholecystitis: POD#1 lap cholecystectomy, doing well okay to d/c to home f/u with me in 2 weeks activity restrictions and wound care instructions reviewed return precautions given Present on Admission?: Yes Subjective 79 y/o male POD#1 lap cholecystectomy for acute cholecystitis. Doing well, no pain, tolerated diet. Physical Exam Constitutional: WD/WN, vitals as above Gastrointestinal (Abdomen): Inspection/Auscultation: + abdominal surgical incision (incision c/d/i, no pain. some echymossis) Percussion/Palpation: abdomen soft; abdomen nontender Results & Data Vital Signs (Past 12 Hours) Vital Signs Temp Pulse Resp BP Pulse Ox 05/01/19 07:22 36.6 C 68 16 146/81 H 95 05/01/19 03:52 36.9 C 71 16 129/74 96 04/30/19 23:24 36.6 C 81 16 146/81 H 97 Laboratory Results Laboratory Results - last 24 hr 05/01/19 05/01/19 06:07 06:07 WBC 16.32 H RBC 4.03 L Hgb 13.5 L Hct 37.9 L MCV 94.0 MCH 33.5 MCHC 35.6 RDW Std Deviation 43.2 RDW Coeff of Salazar 12.6 Plt Count 258 MPV 9.9 Immature Gran % (Auto) 0.3 Neut % (Auto) 86.8 Lymph % (Auto) 7.0 Rhea % (Auto) 5.8 Eos % (Auto) 0.0 Baso % (Auto) 0.1 Immature Gran # (Auto) 0.05 H Neut # (Auto) 14.17 H Lymph # (Auto) 1.15 L Rhea # (Auto) 0.94 H Eos # (Auto) 0.00 Baso # (Auto) 0.01 Sodium 141 Potassium 4.1 Chloride 107 Carbon Dioxide 28 Anion Gap 6.0 BUN 12 Creatinine 0.93 Est Cr Clr Drug Dosing 62.3 Est GFR ( Amer) 88.9 Est GFR (Non-Af Amer) 76.7 BUN/Creatinine Ratio 12.7 Glucose 111 H Calcium 8.9 Total Bilirubin 1.1 H D AST 25 ALT 49 Alkaline Phosphatase 73 Total Protein 6.3 L Albumin 2.6 L Globulin 3.7 Albumin/Globulin Ratio 0.7 L PG Care Time/CCT Total # of Minutes Spent Total Time Spent with Patient: Total time spent is greater than 50% in svp digital sales food & cooking rdination of care (as documented) at patient's floor/unit and/or counseling patient:
== END 2019-05-01 10:25 | disposition home or self-care (01) | DRG 419 ==
LOC: ED 15:28 → SUATTDRO 20:05 → 3W 20:05

== ENCOUNTER 2021-08-13 07:20 | Observation (INO) ==
--- NOTE | 2021-07-16 11:40 | PAT Medication Instructions ---
Medication Instructions Date of Service July 16, 2021 Home Medications Medication Instructions Recorded omeprazole 20 mg capsule,delayed 20 mg PO HS #90 cap 11/26/20 release glucosamine sulfate 500 mg tablet (Glucosamine) 1,000 mg PO QAM multivitamin 1 tab PO QAM omeprazole 20 mg capsule,delayed release 20 mg PO HS lutein 10 mg tablet 10 mg PO QAM diphenhydramine 25 mg-acetaminophen 500 mg tablet (Tylenol PM Extra Strength) 1 tab PO HS STOP taking 2 weeks before surgery glucosamine sulfate 500 mg tablet (Glucosamine) 1,000 mg PO QAM lutein 10 mg tablet 10 mg PO QAM DO NOT take the morning of surgery multivitamin 1 tab PO QAM Take evening before surgery omeprazole 20 mg capsule,delayed release 20 mg PO HS diphenhydramine 25 mg-acetaminophen 500 mg tablet (Tylenol PM Extra Strength) 1 tab PO HS Other Notes OTHERWISE NOTHING TO EAT OR DRINK AFTER MIDNIGHT. If you have any questions please call us at [phone] or [phone] or [phone] or [phone].
--- NOTE | 2021-07-17 11:50 | Anesthesiology Consultation ---
Date of Service July 17, 2021 Assessment & Plan (1) Encounter for pre-operative examination: - Patient hypertensive in clinic, initially 180/87 [id number] after patient resting in clinic with feet flat on floor x 15 minutes-174/84 manual. Patient anxious at appointment. Patient reports regular home BP readings < 140/90s. 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 - cardio pre-op evaluation 07/15/2021 Dr. Rae: "...presents today for management of his borderline hypertension, hypercholesterolemia, his strong family history of early coronary artery disease, and as a preoperative evaluation...The patient follows blood pressures routinely home and notes an average of 130s/70s." BP at appointment 170/92. "The patient is stable from a cardiovascular standpoint. He demonstrates excellent control of his blood pressure and cholesterol values...He is an acceptable cardiac risk for knee replacement surgery as he demonstrates excellent functional status without cardiac symptoms. No further cardiac testing is necessary...Continue current medications..." - PCP pre-op evaluation 07/09/2021 Fior Oliveros PA-C: "Patient presents for a pre op for knee replacement with Dr. Ponce with [facility]...estimated risk probability for perioperative BENITEZ fairly low. Vitals signs reviewed and were stable today. (BP at appointment 134/82.)..from a general medical standpoint, patient cleared for surgery pending cardiology clearance..." - COVID screening: Per assessment on 07/17/2021: Travel screen negative, no known COVID-19 positive contacts or current COVID-19 related symptoms. Patient vaccinated. Surgeon arranging preop COVID testing, scheduled 08/09/2021. Awaiting results. - Outpatient joint assessment: Due to age and co-morbidities, patient is NOT acceptable candidate for outpatient joint program from anesthesia standpoint if surgeon and patient/patient's family decide to pursue that pathway. Case also reviewed by Dr. Turner who agreed with determination above. Chart Review Chart Review: Acceptable Risk for Surgery and Patient seen in Pre Admission Testing Teaching & Discussion Pre-Anesthesia Teaching/Discussion Notes: Instructed NPO after midnight before surgery, except medications with 15 cc of water. Medication instructions provided according to the PAT guidelines. History Surgery Operation Date: 08/13/21 07:00 Proposed Procedures p Right Total Knee Arthroplasty - Romeo Ponce MD Height/Weight Height: 5 ft 9 in Weight: 83 kg Allergies Allergy/AdvReac Type Severity Reaction Status Date / Time No Known Allergies Allergy Verified 07/15/21 16:32 Medications Home Medications Medication Instructions Recorded Confirmed Last Taken glucosamine sulfate 500 mg tablet 1,000 mg PO QAM 09/13/18 07/15/21 04/29/19 (Glucosamine) multivitamin 1 tab PO QAM 04/29/19 07/15/21 04/29/19 omeprazole 20 mg capsule,delayed 20 mg PO HS #90 cap 11/26/20 07/15/21 Unknown release lutein 10 mg tablet 10 mg PO QAM 07/09/21 07/15/21 Unknown diphenhydramine 25 1 tab PO HS PRN 07/15/21 07/15/21 Unknown mg-acetaminophen 500 mg tablet (Tylenol PM Extra Strength) Past Medical History Medical History Cardiac murmur systolic, follows with Dr. Rae [facility]; echo 2018-mild mitral regurgitation, moderate aortic sclerosis without stenosis. GERD (gastroesophageal reflux disease) Well controlled, denies issues laying flat History of hypertension Dr. Rae monitors; controlled, no meds at present Osteoarthritis Patient denies h/o stroke, seizures, heart attack, heart failure, DM, blood clots or blood transfusions. Exercise / Class Metabolic Activity II 4-5 Yardwork/Stairs/Walk up hill (no CP or SOB) Past Family History Family History Sister Diabetes Hypertension Coronary heart disease Brother Diabetes Hypertension Coronary heart disease Mother Coronary heart disease Other No significant family history Denies family history of Cancer Past Surgical History Surgical History (Updated 07/17/21 @ 15:00 by Fela Gaston PA-C) History of cataract extraction with lens replacement B/L History of colonoscopy History of esophagogastroduodenoscopy (EGD) History of hemorrhoidectomy History of left inguinal hernia repair History of right inguinal hernia repair 07/05/2019: Grade 3 view, MAC #3, ETT# 8.0 hi-lo. Atraumatic. No issues reported on anesthesia progress note. History of vasectomy S/P laparoscopic cholecystectomy 04/30/2019: Grade 1 view, MAC#3, ETT #7.5 hi-lo, atraumatic. No issues reported on anesthesia progress note. Past Anesthesia History No Hx of Anesthesia Complications and No Family Hx of Anesthesia Complications History of PONV No Hx of PONV and No Hx of Motion Sickness Social History Smoking Status: Former smoker Do You Dip or Chew Tobacco: No Smoking End Date: Hx Alcohol Use: Yes Alcohol type: other alcohol intake frequency: holidays/special occasions only Hx Substance Use: No substance use type: does not use Review of Systems Patient denies chest pain, shortness of breath, dyspnea on exertion, snoring, witnessed apneas, fever, chills, cough, wheezing, or palpitations. Physical Exam Vital Signs Vitals BP 174/84 P 63 SP02 97% on RA RESP 17 Physical Mildly limited cervical extension range of motion without pain TMD 3.5 finger breaths Dentition: intact, cap front bottom tooth, several bottom caps/crowns, two partial bridges sides, denies loose or chipped teeth Lungs: normal respiratory effort. Clear throughout to auscultation, no adventitious breath sounds Cardiac: regular rate and rhythm, 2/6 systolic murmur LSB, no S3 or S4 Carotid arteries: negative bruit bilat Extremities: no distal extremity edema Lab Results Anesthesia Preop Results Results Anesthesia Widget: WBC 7.95 K/uL (4.8-10.8) 07/02/21 Hgb 16.2 g/dL (14.0-18.0) 07/02/21 Hct 47.0 % (42-52) 07/02/21 Plt 300 K/uL (130-400) 07/02/21 Na 140 mmol/L (136-145) 07/02/21 K 4.3 mmol/L (3.5-5.1) 07/02/21 Cl 108 mmol/L (98-107) H 07/02/21 CO2 28 mmol/L (21-32) 07/02/21 BUN 13 mg/dl (7-18) 07/02/21 Creat 1.05 mg/dl (0.6-1.4) 07/02/21 Glucose Level 94 mg/dl (70-99) 07/02/21 PT 10.6 Seconds (9.0-12.0) 07/17/21 PTT 29.3 Seconds (21.0-31.0) 07/17/21 INR 1.0 (0.9-1.1) 07/17/21 HA1c 5.2 % (4.5-5.6) 07/17/21 Urine Color Yellow 07/17/21 Urine Appearance Clear (Clear) 07/17/21 Urine pH 5.5 (4.5-7.5) 07/17/21 Urine Specific [place] 1.011 (1.000-1.030) 07/17/21 Urine Protein Negative (Negative) 07/17/21 Urine Glucose (UA) Negative (Negative) 07/17/21 Urine Ketones Negative (Negative) 07/17/21 Urine Blood Negative (Negative) 07/17/21 Urine Nitrite Negative (Negative) 07/17/21 Urine Bilirubin Negative (Negative) 07/17/21 Urine Urobilinogen Negative (Negative) 07/17/21 Urine Leukocyte Esterase Negative (Negative) 07/17/21 Blood Type O Positive 07/17/21 Antibody Screen NEGATIVE 07/17/21 Testing Electrocardiogram Date: 07/17/21 Normal sinus rhythm, rate 60 bpm. Normal ECG When compared with ECG of 29-APR-2019 16:13, Nonspecific T wave abnormality no longer evident in Inferior leads Confirmed by Alberto Sanchez. Chest X-Ray Date: 07/17/21 There is a moderate to large hiatus hernia, unchanged. There is a mildly tortuous thoracic aorta. A few small bibasilar linear densities likely represent scarring. IMPRESSION: No significant change compared to the prior study. No acute process. Echocardiogram Date: 04/30/19 EF 60-65%. Normal left ventricular systolic function. Mild aortic regurgitation. Grade I diastolic dysfunction. No regional wall motion abnormalities.
--- NOTE | 2021-07-19 22:26 | History & Physical Report ---
Date of Service July 19, 2021 Assessment & Plan (1) Right knee DJD: Plan: Postoperative prescription for Percocet will be provided day of discharge from the hospital. Anticipate discharge to home with home health services. The patient is aware that his surgery may be postponed based on hospital bed availability. The patient states he would like to be considered for an outpatient case. He is healthy for his age and takes minimal medication. He is older than the standard outpatient patient, but also has minimal comorbidities. I will have him evaluated by anesthesia regarding appropriateness. He states he does have a good support network at home. The patient already has a walker and cane at home. He will be sent to [facility] today for preoperative lab work, EKG, and chest x-ray. He has already seen his PCP for medical clearance. The patient is aware of the COVID-19 risks associated with surgery. He is currently asymptomatic of any COVID-19 symptoms. He will obtain nasal swab PCR testing 4 days prior to surgery. PDMP was checked, and there are no concerning findings. Postop followup visit has already been made with me for 08/26/2021. History of Present Illness Chief Complaint: Right knee pain Primary Care Provider: Cisco Thomas MD This 81-year-old male presents with his , for his preoperative history and physical. He is scheduled to undergo a right knee total knee arthroplasty on 08/13/2021. The patient has had right knee pain for over 2 years. No specific trauma or injury. Pain has become worse with time. He was initially controlling his symptoms with cortisone injections. They stopped working. He did try a round of Synvisc viscosupplementation without improvement. He does take ibuprofen with some relief. Pain is affecting his ADLs. It is affecting the activities that he would like to do recreationally. Pain is worse with weightbearing. It is also worse with stairs. He denies any catching or locking. No buckling. No numbness or tingling. He has also tried activity modification without improvement. Preoperative imaging has been obtained. Allergies Allergy/AdvReac Type Severity Reaction Status Date / Time No Known Allergies Allergy Verified 07/15/21 16:32 Home Medications Medication Instructions Recorded Confirmed Type glucosamine sulfate 500 mg tablet 1,000 mg PO QAM 09/13/18 07/15/21 History (Glucosamine) multivitamin 1 tab PO QAM 04/29/19 07/15/21 History omeprazole 20 mg capsule,delayed 20 mg PO HS #90 cap 11/26/20 07/15/21 Rx release lutein 10 mg tablet 10 mg PO QAM 07/09/21 07/15/21 History diphenhydramine 25 1 tab PO HS PRN 07/15/21 07/15/21 History mg-acetaminophen 500 mg tablet (Tylenol PM Extra Strength) Past Med/Surg History Medical History Cardiac murmur systolic, follows with Dr. Rae [facility]; echo 2019-mild mitral regurgitation, moderate aortic sclerosis without stenosis. GERD (gastroesophageal reflux disease) Well controlled, denies issues laying flat History of hypertension Dr. Rae monitors; controlled, no meds at present Osteoarthritis Surgical History History of cataract extraction with lens replacement B/L History of colonoscopy History of esophagogastroduodenoscopy (EGD) History of hemorrhoidectomy History of left inguinal hernia repair History of right inguinal hernia repair 07/05/2019: Grade 3 view, MAC #3, ETT# 8.0 hi-lo. Atraumatic. No issues reported on anesthesia progress note. History of vasectomy S/P laparoscopic cholecystectomy 04/30/2019: Grade 1 view, MAC#3, ETT #7.5 hi-lo, atraumatic. No issues reported on anesthesia progress note. 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 Physical Exam Physical Exam: Vitals: Height 175 cm, weight 83 kilograms, BMI 27.1, temperature 36.4, BP 160/80, respirations 16, O2 sat 99% on room air. General: Well-developed, well-nourished, elderly white male in no acute distress. Sitting in a chair. Alert and oriented. Skin: Warm and dry with fair turgor. No rashes or lesions. No ecchymosis or erythema. No intraarticular effusion. HEENT: Normocephalic, atraumatic. Eyes: PERRLA, EOMI. Nares patent bilaterally without turbinate enlargement. Oropharynx exam deferred due to COVID precautions. Heart: RRR, no gallops or rubs. Soft 2/6 murmur noted at the left lateral chest wall. It is not heard along the sternal border. Lungs: Clear to auscultation bilaterally. No crackles, rhonchi or wheezing. Good air movement. Abdomen: Soft, nontender. No organomegaly. No masses. Bowel sounds present x4. Musculoskeletal: Right knee evaluation reveals no intraarticular effusion. He has full terminal extension. Flexion to greater than 110 degrees. Strength is 5/5 with good quad tone. Stable collateral ligaments. Normal Alfredo. No defect in the patellar tendon or quadriceps tendon. He does have discomfort with palpation over the medial joint line. No lateral joint line discomfort with palpation. Neurologic: Gross sensation is intact across the lower extremities by soft touch. Peripheral pulses are 2+. Results & Data Results & Data ([facility]) Diagnostic Findings Radiographic imaging previously obtained shows end-stage DJD of the medial c ompartment. Periarticular osteophytes, subchondral sclerosis, cystic changes, and osteophytes are present. He is developing slight varus alignment. Code Status & VTE Plan VTE Prophylaxis Plan VTE Prophylaxis will be ordered: Yes
[~2021-08-13 07:20] MED LIST changes: -ASPEC81 PO; +BUPIVACAINE 0.25% 30 ML VIAL ONE; +BUPIVACAINE 0.5 % 5 MG/1 ML PF 10ML VIAL ONE; +CeleBREX 200 MG CAP PO SCH; +DEXAMETHASONE SOD INJ 4 MG/ML VIAL ONE; +EPINEPHrine INJ 1 MG/ML AMP ONE; +LR 60ML/HR IV SCH; -OMEP20TA PO; +Scopolamine 1 MG TDSY TD SCH; +TRANEXAMIC ACID 1,000 MG **IV Intra-op IV SCH; +TRANEXAMIC ACID 1,000 MG **IV Pre-op IV SCH; -ZANTAC DAILY; +ceFAZolin 2000MG 2,000 MG/15 ML SYR IV SCH
[2021-08-13] MEDS ORDERED: ATROPINE SULFATE 0.1 MG/ML 10ML SYR IV PRN (09:11)
[2021-08-13] MEDS ORDERED: fentaNYL citrate 100 MCG/2 ML VIAL IV PRN (09:11)
[2021-08-13] MEDS ORDERED: ePHEDrine sulfate 50 MG/ML AMP IV PRN (09:11)
[2021-08-13] MEDS ORDERED: ONDANSETRON INJ 2 MG/ML 2 ML VIAL IV PRN ×2 (09:11→13:34)
[2021-08-13] MEDS ORDERED: MIDAZOLAM HCL 1 MG/ML 2ML VIAL ONE (09:28)
[2021-08-13] MEDS ORDERED: LIDOCAINE 2% 2 ML VIAL/AMP(20MG/ML) INFIL ONE (09:28)
[2021-08-13] MEDS ORDERED: PROPOFOL IV EMULSION 10 MG/ML 20 ML VIAL IV ONE ×2 (09:28→11:01)
[2021-08-13] MEDS ORDERED: fentaNYL citrate 100 MCG/2 ML VIAL ONE (09:58)
--- NOTE | 2021-08-13 10:02 | History & Physical Bridge Note ---
Date of Service August 13, 2021 History & Physical Bridge Note I have examined the patient, reviewed the History & Physical and in the interval since the performance of the History & Physical I have noted the following changes of clinical significance: no changes noted Patient is aware of the risks, is asymptomatic, and tested negative for COVID- 19.
[2021-08-13] MEDS ORDERED: ORTHO JOINT ANESTHETIC ONE (10:09)
[2021-08-13] MEDS ORDERED: PHENYLEPHRINE HCL 10 MG/ML VIAL ONE (11:33)
--- NOTE | 2021-08-13 13:29 | Post Operative Brief Note ---
Immediate Post Op Note v1 Date of Surgery August 13, 2021 Pre & Post Diagnosis Operation Date: 08/13/21 09:50 Pre-Op Diagnosis: Right Knee Osteoarthritis Post-Op Diagnosis: Right Knee Osteoarthritis I identified the patient and participated in the time-out.: Yes Procedure Operation Date: 08/13/21 09:50 Actual Procedures p Right Total Knee Arthroplasty(Right) - Romeo Ponce MD Surgeon Romeo Ponce MD Integration Developer TRACEY Waterman PA-C (No fellow avail) Estimated Blood Loss 120 Findings Consistent with Post-Op Diagnosis Fluids 1400 cc Specimens Right knee contents Anesthesia Type MAC Spinal Regional Complications none
--- NOTE | 2021-08-13 13:29 | Operative Report ---
Post Operative Report Pre & Post Diagnosis Operation Date: 08/13/21 09:50 Pre-Op Diagnosis: Right Knee Osteoarthritis Post-Op Diagnosis: Right Knee Osteoarthritis I identified the patient and participated in the time-out.: Yes Procedure Operation Date: 08/13/21 09:50 Actual Procedures p Right Total Knee Arthroplasty(Right) - Romeo Ponce MD Surgeon Romeo Ponce MD Audio Visual Production Specialist TRACEY Waterman PA-C (No fellow avail) Estimated Blood Loss 120 Findings See Below Examined Under Anesthesia: ROM -- There was 10 degrees to 130 degrees of flexion Ligamentous examination -- revealed stable Alfredo, posterior drawer, varus and valgus stress at 0 and 30 degrees. [place] Grade IV changes of Trochlea, Medial compartment, LFC. Grade III changes Patella Fluids 1400 cc Specimens right knee contents Anesthesia Type MAC Spinal Regional Complications none Indications This is a 81-year-old male who has clinical and radiographic findings consistent with osteoarthritis of the a right knee. I recommended that a right total knee replacement be performed. The patient understands the risks of surgery, which include but not limited to: bleeding, infection, re-operation, damage to nerves and arteries, continued knee pain, knee stiffness, DVT, and . The patient understands all of these instructions and explanations, all of his questions have been satisfactorily addressed and the patient has elected to proceed. Informed consent was signed. Description of Procedure IMPLANTS: 1. Femur: Triathlon #5 Right PS. 2. Tibia: Triathlon #5 Maxbass. 3. Insert: Triathlon #5 x 9 mm PS X3 poly. 4. Patella: Triathlon A35 x 10 mm X3 poly. 5. Simplex cement. TRACEY Waterman PA-C is assisting with positioning, retracting, and closure due to fellow not available. Procedure: The patient was taken to the Operating Room and placed in the supine position after spinal and adductor canal nerve block was administered. My initials and a multidisciplinary time-out were used to identify the right leg as the correct operative limb. A tourniquet was placed high in the thigh. Prior to the incision, 2 grams of intravenous Ancef were given. The right leg was then prepp ed and draped in a standard sterile fashion. An Esmarch was used to exsanguinate the leg and the tourniquet was inflated to 250 mmHg. The planned mid-line 20 cm incision was created exposing the extensor mechanism. The medial parapatellar arthrotomy was made and the patella was everted. The patella was addressed first. It was prepared by reaming from 27 mm down to 16 mm. An A35 button was found to fit best. The peg holes were made in the standard fashion. The femur was addressed next and the guide ilya was placed intramedullary. The initial cutting block was placed with 5 degrees of valgus and removing 10 mm for the distal cut. The cut was made and the 4-in-1 cutting block for a size 5 femur was placed. These cuts and the cuts to place the box were made in the standard fashion. Our attention was then drawn to the tibia cut with the external cutting guide, taking 2 mm from the medial low side. There was sufficient extension and flexion gap to fit a 9 mm spacer. A #5 Tibial baseplate fit well. A trial with a 9 mm spacer showed excellent stability in both flexion and extension, with good ligament balance, and thumbs free patellar tracking. Range of motion of 0- 135 degrees. The tibial baseplate was prepped for the keel and stem. All the trial components were tested again, with good stability and thumbs free tracking of the patella. All components were removed. The tourniquet was deflated. Hemostasis was obtained. 90 ml of total knee cocktail were injected into the soft tissues and periosteum. A bone plug was placed in the femur and covered with bone wax. After a 15 minute break, the limb was exsanguinated again and the tourniquet was re-inflated. All surfaces were copiously irrigated prior to placement of the components. The femoral component followed by Tibial baseplate were cemented in place and the 9 mm X3 poly was placed. Next, the patellar button was placed using the same Simplex cement. Again, the range of motion and stability were unchanged. The extensor mechanism was closed with 1-0 and 0 Vicryl with the knee bent approximately 60 degrees in a standard fashion. The peritenon and deep fascia was closed with 2-0 Vicryl. The subcutaneous layer was closed with 3-0 Vicryl. The skin was closed with Zipline and shield. The limb was cleaned and dried. 4x4 dressing was placed over top followed by ABDs, sterile Webril, and a foot to thigh Massimo bandage. The patient was then transferred to the Recovery Room in stable condition. The sponge and needle counts were correct. POST-OP INSTRUCTIONS: The patient will be WBAT. The patient will be admitted to the hospital. The patient will use the knee immobilizer when ambulating and standing until good quad control is achieved. Labs will be obtained during the stay. DVT prop hylaxis will included aspirin for 6 weeks, TEDs, and mechanical foot pumps. The dressing will be changed prior to their discharge or postop day #2 and covered with a Silverlon dressing, whichever comes first. I attest to the content of the Intraoperative Record and any orders documented therein. Any exceptions are noted below.
[2021-08-13] MEDS ORDERED: ePHEDrine sulfate 50 MG/ML SYR ONE (13:30)
[2021-08-13] MEDS ORDERED: diphenhydrAMINE 50 MG/ML VIAL IV PRN (13:34)
[2021-08-13] MEDS ORDERED: ALUMINUM/MAGNESIUM SUSP 30 ML UDC PO PRN (13:34)
[2021-08-13] MEDS ORDERED: MAGNESIUM HYDROXIDE SUSP 30 ML UDC PO PRN (13:34)
[2021-08-13] MEDS ORDERED: oxyCODONE HCL IR 5 MG TAB (IMMEDIATE RELEASE) PO PRN (13:34)
[2021-08-13] MEDS ORDERED: TAMSULOSIN HCL 0.4 MG CAP PO PRN (13:34)
[2021-08-13] MEDS ORDERED: METOCLOPRAMIDE HCL INJ 5 MG/ML 2 ML VIAL IV PRN (13:34)
[2021-08-13] MEDS ORDERED: bisacodyL 10 MG SUPP PR PRN (13:34)
[2021-08-13] MEDS ORDERED: NALOXONE HCL 0.4 MG/1 ML VIAL/CARP IV PRN (13:34)
[2021-08-13] MEDS ORDERED: HYDROmorphone INJ 0.5 MG/0.5 ML SYR IV PRN (13:34)
--- NOTE | 2021-08-13 13:34 | Operative Report ---
Post Operative Report Pre & Post Diagnosis Operation Date: 08/13/21 09:50 Pre-Op Diagnosis: Right Knee Osteoarthritis Post-Op Diagnosis: Right Knee Osteoarthritis I identified the patient and participated in the time-out.: Yes Procedure Operation Date: 08/13/21 09:50 Actual Procedures p Right Total Knee Arthroplasty(Right) - Romeo Ponce MD Surgeon Romeo Ponce MD Splitter Hand TRACEY Waterman PA-C (No fellow avail) Estimated Blood Loss 120 Findings Consistent with Post-Op Diagnosis Specimens none Description of Procedure I was present during the entire case assisting with positioning, prepping, draping, wound retraction,wound closure and dressing application. No fellow present. Please see Dr. Ponce procedure note for specifics of the case. I attest to the content of the Intraoperative Record and any orders documented therein. Any exceptions are noted below.
--- NOTE | 2021-08-13 14:27 | XRay Report ---
XR knee RT 1 or 2V routine HISTORY: 81 years-old Male Surgical Post Op right knee total joint arthroplasty COMPARISON: Leg length study radiographs 05/30/2021 TECHNIQUE: 2 views of the right knee FINDINGS: Right knee total joint arthroplasty demonstrates satisfactory alignment. Expected postoperative soft tissue swelling and deep tissue air. No acute fracture, malalignment or unexpected opaque foreign bod y. IMPRESSION: Right knee total joint arthroplasty with expected postoperative changes. ACT 112: Negative or not required by law. The above report was generated using voice recognition software. It may contain grammatical, syntax o r spelling errors. Electronically signed by: Silvio Villafuerte M.D. 08/13/2021 2:26 PM
[2021-08-13] MEDS ORDERED: diphenhydrAMINE Capsule 25 MG CAP PO PRN (14:50)
[2021-08-13] MEDS ORDERED: ACETAMINOPHEN 500 MG TAB PO PRN (14:51)
--- NOTE | 2021-08-13 15:38 | Anesthesiology Progress Note ---
Date of Service August 13, 2021 Anesthesia Post Procedure Vital Signs Vital Signs: Temp Pulse Pulse Resp BP Pulse Ox 08/13/21 15:35 36.5 C 63 16 136/84 99 08/13/21 15:04 36.4 C L 64 18 131/74 98 08/13/21 14:25 61 15 142/77 H 98 08/13/21 14:15 36.1 C L 61 17 135/81 98 08/13/21 14:05 64 17 137/72 99 08/13/21 13:55 73 18 128/76 96 08/13/21 13:45 73 16 132/77 98 08/13/21 13:35 36.1 C L 74 18 119/69 98 08/13/21 08:45 62 18 160/87 H 97 08/13/21 07:40 36.7 C 74 18 161/87 H 97 Pain Intensity Right Knee: Pain Intensity: 4 Transfer of Care Handoff Completed per policy Notes Mental Status: alert / awake / arousable Patient Amnestic to Procedure: Yes Nausea / Vomiting: adequately controlled Pain: adequately controlled Airway Patency, RR, SpO2: stable & adequate BP & HR: stable & adequate Hydration State: stable & adequate Neuraxial Anesthesia: was administered and sensory block is resolving Anesthetic Complications: no major complications apparent and Pt Satisfied with anesthetic care
[2021-08-13] MEDS: ACETAMINOPHEN 500 MG TAB PO SCH ×2 (15:42→22:45)
[2021-08-13] MEDS: SODIUM CHLORIDE 0.9% 1000ML 1,000 ML IV SCH (16:16)
[2021-08-13] MEDS: KETOROLAC TROMETHAMINE 15 MG/ML VIAL IV SCH ×2 (16:16→22:44)
[2021-08-13] MEDS: Scopolamine CHECK PATCH PLACEMENT SCH ×2 (16:17→23:48)
[2021-08-13] MEDS ORDERED: TRANEXAMIC ACID / 0.7% NACL 1,000 MG/100 ML BAG IV SCH (20:00)
[2021-08-13] MEDS: ASPIRIN 81 MG ECTAB PO SCH (20:24)
[2021-08-13] MEDS: ceFAZolin 2000MG 2,000 MG/15 ML SYR IV SCH (20:24)
[2021-08-13] MEDS: DOCUSATE SODIUM 100 MG CAP PO SCH (20:25)
[2021-08-13] MEDS ORDERED: SENNA 8.6 MG TAB PO SCH (21:00)
[2021-08-13] MEDS ORDERED: PANTOprazole 40 MG TAB PO SCH (21:00)
[2021-08-13] MEDS ORDERED: COUGH DROP (SUGAR FREE) LOZ 24 LOZ/1 BOX BUCCAL ONE (22:51)
[2021-08-14] MEDS: KETOROLAC TROMETHAMINE 15 MG/ML VIAL IV SCH ×2 (03:13→10:13)
[2021-08-14] MEDS: SODIUM CHLORIDE 0.9% 1000ML 1,000 ML IV SCH (03:13)
[2021-08-14] MEDS: ceFAZolin 2000MG 2,000 MG/15 ML SYR IV SCH (03:13)
[2021-08-14] MEDS ORDERED: LR 500ML BOLUS, THEN 15ML/HR IV SCH (06:00)
[2021-08-14] MEDS: ACETAMINOPHEN 500 MG TAB PO SCH ×2 (06:04→13:27)
[2021-08-14] MEDS: Scopolamine CHECK PATCH PLACEMENT SCH (07:30)
[2021-08-14] MEDS: DOCUSATE SODIUM 100 MG CAP PO SCH (07:32)
[2021-08-14] MEDS: ASPIRIN 81 MG ECTAB PO SCH (07:32)
[2021-08-14 07:43] LABS: Hematocrit (blood only) 35.7 % (42-52); Hemoglobin 12.5 g/dL (14.0-18.0); Mean Corpuscular Hemoglobin 32.6 pg (25-34); Mean Corpuscular Volume 93.2 fL (80-100); Mean Platelet Volume 9.5 fL (7.4-10.4); Platelet Count 208 K/uL (130-400); RDW Coefficient of Variation 12.9 % (11.5-14.5); RDW Standard Deviation 44.5 fL (36.4-46.3); Red Blood Count 3.83 M/uL (4.7-6.1); White Blood Count 17.98 K/uL (4.8-10.8)
[2021-08-14] MEDS ORDERED: dexAMETHasone 4 MG TAB PO SCH (08:00)
[2021-08-14 08:15] LABS: BUN Creatinine Ratio 20.2 (10-20); Calcium 8.2 mg/dl (8.5-10.1); Creatinine Clr Calc Pharmacy 49.5 ml/min; Est GFR (African American) 69.3 ml/min; Est GFR (Non-African American) 59.8 ml/min; Potassium 4.2 mmol/L (3.5-5.1)
[2021-08-14] MEDS ORDERED: GLUCOSAMINE SULFATE 500 MG CAP PO SCH (09:00)
[2021-08-14] MEDS ORDERED: MULTIVITAMIN TAB PO SCH (09:00)
[2021-08-14] MEDS ORDERED: NON-FORMULARY MEDICATION (Multivitamin Tablet) PO SCH (09:00)
--- NOTE | 2021-08-14 10:19 | Orthopedic Progress Note ---
Date of Service August 14, 2021 Assessment & Plan (1) Right knee DJD: Plan: POD #1 s/p right TKA, doing as well as expected. Resume diet. Continue pain control. WBAT RLE, with walker. PT/OT. Dressing change POD #2 or prior to discharge, whichever comes first. Will be changed to so Silverlon dressing, which will remain until 2 week postop visit. DVT prophylaxis: TEDs for 3 weeks, foot pumps while in the hospital, ASA BID for 6 weeks. D/C planning. Present on Admission?: Yes Admission and Anticipated Discharge Date Admission Date: August 13, 2021 Subjective Doing well. Asked if he could have his left knee done in 8 weeks? Review of Systems Review of Systems: All systems reviewed & are unremarkable except as noted in HPI & below Physical Exam Physical Exam: RLE: Incision to light touch is intact distally. Actively wiggling toes and ankle. Active ROM 3-110 degrees. Calf soft and nontender. Results & Data ([facility]) Vital Signs (Past 12 Hours) Vital Signs Temp Pulse Resp BP Pulse Ox 08/14/21 07:53 36.7 C 73 16 121/71 97 08/14/21 03:30 36.7 C 84 18 124/75 95 08/13/21 23:20 36.6 C 77 18 104/61 95 Laboratory Results 08/14/21 08/14/21 Range/Units 07:33 07:33 WBC 17.98 H (4.8-10.8) K/uL RBC 3.83 L (4.7-6.1) M/uL Hgb 12.5 L (14.0-18.0) g/dL Hct 35.7 L (42-52) % MCV 93.2 (80-100) fL MCH 32.6 (25-34) pg MCHC 35.0 (32-36) g/dL RDW Std Deviation 44.5 (36.4-46.3) fL RDW Coeff of Salazar 12.9 (11.5-14.5) % Plt Count 208 (130-400) K/uL MPV 9.5 (7.4-10.4) fL Sodium 139 (136-145) mmol/L Potassium 4.2 (3.5-5.1) mmol/L Chloride 108 H (98-107) mmol/L Carbon Dioxide 22 (21-32) mmol/L Anion Gap 9.0 (3-11) BUN 23 H (7-18) mg/dl Creatinine 1.13 (0.6-1.4) mg/dl Est Cr Clr Drug Dosing 49.5 ml/min Est GFR ( Amer) 69.3 ml/min Est GFR (Non-Af Amer) 59.8 ml/min BUN/Creatinine Ratio 20.2 H (10-20) Glucose 116 H (70-99) mg/dl Calcium 8.2 L (8.5-10.1) mg/dl Diagnostic Findings XR knee RT 1 or 2V routine HISTORY: 81 years-old Male Surgical Post Op right knee total joint arthroplasty COMPARISON: Leg length study radiographs 05/30/2021 TECHNIQUE: 2 views of the right knee FINDINGS: Right knee total joint arthroplasty demonstrates satisfactory alignment. Expected postoperative soft tissue swelling and deep tissue air. No acute fracture, malalignment or unexpected opaque foreign body. IMPRESSION: Right knee total joint arthroplasty with expected postoperative changes.
--- NOTE | 2021-08-14 16:49 | Discharge Summary ---
Date of Service August 14, 2021 Admission HPI Per Admitting Provider This 81-year-old male presents with his , for his preoperative history and physical. He is scheduled to undergo a right knee total knee arthroplasty on 08/13/2021. The patient has had right knee pain for over 2 years. No specific trauma or injury. Pain has become worse with time. He was initially controlling his symptoms with cortisone injections. They stopped working. He did try a round of Synvisc viscosupplementation without improvement. He does take ibuprofen with some relief. Pain is affecting his ADLs. It is affecting the activities that he would like to do recreationally. Pain is worse with weightbearing. It is also worse with stairs. He denies any catching or locking. No buckling. No numbness or tingling. He has also tried activity modification without improvement. Preoperative imaging has been obtained. Admission Exam Per Admitting Provider Vitals: Height 175 cm, weight 83 kilograms, BMI 27.1, temperature 36.4, BP 160/80, respirations 16, O2 sat 99% on room air. General: Well-developed, well-nourished, elderly white male in no acute distress. Sitting in a chair. Alert and oriented. Skin: Warm and dry with fair turgor. No rashes or lesions. No ecchymosis or erythema. No intraarticular effusion. HEENT: Normocephalic, atraumatic. Eyes: PERRLA, EOMI. Nares patent bilaterally without turbinate enlargement. Oropharynx exam deferred due to COVID precautions. Heart: RRR, no gallops or rubs. Soft 2/6 murmur noted at the left lateral chest wall. It is not heard along the sternal border. Lungs: Clear to auscultation bilaterally. No crackles, rhonchi or wheezing. Good air movement. Abdomen: Soft, nontender. No organomegaly. No masses. Bowel sounds present x4. Musculoskeletal: Right knee evaluation reveals no intraarticular effusion. He has full terminal extension. Flexion to greater than 110 degrees. Strength is 5/5 with good quad tone. Stable collateral ligaments. Normal Alfredo. No defect in the patellar tendon or quadriceps tendon. He does have discomfort with palpation over the medial joint line. No lateral joint line discomfort with palpation. Neurologic: Gross sensation is intact across the lower extremities by soft touch. Peripheral pulses are 2+. Principal Diagnosis Right knee osteoarthritis Discharge Exam RLE: Incision to light touch is intact distally. Actively wiggling toes and ankle. Active ROM 3-110 degrees. Calf soft and nontender. Discharge Data Allergies Allergy/AdvReac Type Severity Reaction Status Date / Time No Known Allergies Allergy Verified 08/13/21 08:00 Procedures Performed Operation Date: 08/13/21 09:50 Actual Procedures p Right Total Knee Arthroplasty(Right) - Romeo Ponce MD Ordered Studies 08/13/21 05:00 US - OR guided needle placemen Routine Hospital Course (1) Right knee DJD: Patient had an uneventfull overnight stay in the hospital following a right total knee arthroplasty. I saw the patient this afternoon remove his dressings and applied a Silverlon over his incision site. He is to keep this in place until his 2-week postoperative follow-up. He states that he is scheduled to do some in-home therapy for the first 2 weeks postoperatively. Advised him to only see him for 2-week postoperative follow-up we will have him get established with some outpatient physical therapy following Dr. Ponce's rehab protocol. Patient was very appreciative the care that he received throughout his stay. If he has questions or concerns he will contact our clinic. POD #1 s/p right TKA, doing as well as expected. Resume diet. Continue pain control. WBAT RLE, with walker. PT/OT. Dressing change POD #2 or prior to discharge, whichever comes first. Will be changed to so Silverlon dressing, which will remain until 2 week postop visit. DVT prophylaxis: TEDs for 3 weeks, foot pumps while in the hospital, ASA BID for 6 weeks. D/C planning. Total Time Total Time Spent Total Time Spent (In Minutes): 20 minutes Discharge Plan Discharge Items Patient Disposition: Home - Home Health Services Reason For Visit: Right Knee Osteoarthritis Discharge Diagnosis: Right knee osteoarthritis Activity: As commented below Lifting: None Bathing: Keep incision dry Bathing Comment: May shower tomorrow Sexual Activity: Wait until after follow-up appointment Exercise/Sports: Wait until after follow-up appointment Driving/Machine Use: No driving until cleared by sports specialist Weightbearing: Right weightbearing Weightbearing Comment: as tolerated with walker assistance Non-emergency contact: Surgeon Call non-emergency contact if: you have any medication questions, your pain is not controlled, your temperature is above 101.5, your wound has increased drainage and your wound pain has increased Follow-up/Referrals: Pro,Cisco Lopez MD [Primary Care Provider] - Diet: Regular Addtl Attending Provider Instructions: Post-operative Instructions Medications *Please lease picker your newly prescribed prescription at your pharmacy and use as directed. Pain Expect to be in a fair amount of pain after surgery. Remember, our goal is not to eliminate your pain, but to make it tolerable. It is a good idea to stay ahead of your pain by taking the medications you were prescribed once you get home. Typically, the pain starts improving 3-7 days after surgery. You should start weaning off the narcotic pain medication (oxycodone, hydrocodone, hydromorphone, morphine) as soon as your pain improves. Please call our office if your pain is not adequately controlled. Ice Ice your operative site at least 5 times a day for 15-30 minutes at a time. Make sure you have a thin cloth between the ice or cooling unit and your skin to prevent palacios bite. This is especially important if you received a nerve block. Continue icing your operative site for the first 5-7 days after surgery, then as needed. Diet/Nausea/Vomiting Start by drinking clear liquids and eating crackers. If you can tolerate this, then you may resume your normal diet. If you feel nauseated or vomit, take Zofran/ondansetron (if prescribed). Please call our office if you have intractable nausea or vomiting, or, if after hours, you may go to the Emergency Room for help. Constipation Constipation is a common side effect of narcotic pain medication. If you have not had a bowel movement within 2 days after surgery, we recommend purchasing an over the counter laxative such as Milk of Magnesia, Dulcolax, or Miralax from a local pharmacy, and taking it as instructed. Call our clinic if any questions. Nerve block The anesthesia team sometimes places a nerve block to help with post-operative pain control. This results in significant numbness and inability to move the extremity. The nerve block usually wears off in 8-12 hours, but sometimes can last up to 24 hours. Please call our office if you are still unable to move your extremity after 24 hours, unless you received a pain pump to take home. Nerve blocks typically wear off quickly, so start taking pain medication as soon as you start feeling soreness near your surgical site. Weight bearing and Range of Motion. Do not bear any weight through your operative extremity immediately after surgery. If you had upper extremity surgery, do not lift anything with that arm. If you are in a knee brace, keep it locked in place until your follow-up. We will discuss your weight bearing, range of motion, and lifting restrictions in detail at your first post-operative appointment. Continuous Passive Motion (CPM) Machine If you were prescribed a CPM machine, it will start after your first post- operative appointment, at which time we will give you instructions on the range of motion settings and duration of treatment Physical therapy You will be given a prescription for physical therapy or occupational therapy at your first post-operative appointment. Typically, patients start therapy within 1 week of surgery Wound care and showering We will inspect your wound at your first post-operative visit, and may do a dressing change at that time. Most patients will be in a water-proof dressing that is removed 14 days after surgery. It is normal to see some dried blood on the dressing. Do not remove your dressing, paper strips or sutures yourself unless you are given permission. Showering is allowed the day after surgery. Do not scrub or remove any dressings. The wound should not be submerged underwater (i.e. in a bathtub or pool) until 4 weeks after surgery SUNDAR stockings If you were given white stockings, these are to be worn at all times except to shower (on both legs) for the first 2 weeks after surgery. Driving You may not drive while taking narcotic pain medication or while in a cast, splint, sling or brace. You, the patient, need to make the final determination about when you are safe to drive, however, the earliest you may consider driving after surgery is below: Hand/Wrist/Elbow Surgery: 3 days Shoulder Surgery: 2 weeks Hip,/Knee/Ankle Surgery: 4 weeks Fracture repair: 6 weeks Return to Work Your return to work depends on what surgery was done and what type of work you do. Please bring any paperwork your employer needs completed to your first post-operative visit. Also, bring a description of your job duties, as this helps us to understand what risks you may face at work. Travel Avoid long distance travel (greater than 1 hour) in airplanes and cars for the first 6 weeks after surgery. If you must travel, you need to have a Doppler ultrasound done before you travel to rule out a blood clot in your legs. Follow-up You should have a follow-up appointment already scheduled 1-2 days after surgery. If not, please contact our office to make this appointment before you leave the hospital. When to call the office It is normal to have swelling and bruising in the limb that was operated on. This will improve with time. It is also normal to have fevers for the first 2 days after surgery. Reasons you should call your doctor include: Uncontrolled pain; Nausea, vomiting, or constipation that does not improve with medication; Fevers over 101.5, chills, sweats; Drainage or bleeding from the wound; Foul odor; Spreading areas of redness; Any other concerns Pending Studies at Discharge: No Stand-Alone Forms: My [facility], Opioid Pain Management, Smoking Cessation Medications and DC Order Prescriptions: New aspirin 81 mg Tablet,Delayed Release (Dr/Ec) 81 mg PO BID 42 Days Qty: 84 RF: 0 oxycodone 5 mg tablet 5 mg PO Q4H MDD Max 8 tabs per day Qty: 30 RF: 0 ascorbic acid (vitamin C) [Vitamin C] 500 mg tablet 500 mg PO BID 14 Days Qty: 28 RF: 0 ferrous sulfate 325 mg (65 mg iron) tablet 325 mg PO DAILY Qty: 14 RF: 0 Continued omeprazole 20 mg capsule,delayed release(DR/EC) 20 mg PO HS Qty: 90 RF: 3 lutein 10 mg tablet 10 mg PO QAM RF: 0 glucosamine sulfate [Glucosamine] 500 mg Tablet 1,000 mg PO QAM RF: 0 multivitamin Tablet 1 tab PO QAM RF: 0 diphenhydramine-acetaminophen [Tylenol PM Extra Strength] 25-500 mg Tablet 1 tab PO HS PRN (Reason: Sleep) RF: 0 Discharge Orders: Discharge Order (Routine); Ordered 08/14/21 Ordered By: Juwan Waterman Admission Data Admit Date/Time: 08/13/21 13:34 Attending Provider: Romeo Ponce Admit Provider: Romeo Ponce Primary Care Provider: Cisco Thomas Other Providers: [facility],Home Healthcare Other Interventions: Discharge Summary Assessment (RN) Last Done: 08/14/21 15:41
== END 2021-08-14 16:41 | disposition home health service (06) ==
LOC: ASU 07:20 → 3W 07:20